=== PATIENT | female | born 1955 | race Caucasian/White ===

== ENCOUNTER 2017-01-17 21:43 | Emergency (ER) | payer OTHER ==
[2017-01-17] MEDS ORDERED: Ketorolac 30 MG/ML SDV IM ONE (22:47)
--- NOTE | 2017-01-17 23:01 | EDM.PDOC ---
ED HPI GENERAL MEDICAL PROBLEM - General Chief Complaint: Back Pain or Injury Stated Complaint: BACK INJURY Time Seen by Provider: 01/17/17 22:39 - History of Present Illness INITIAL COMMENTS - FREE TEXT/NARRATIVE: 61 years old female patient presented tonight with chief complaint of worsening pain of her lower back. Patient fell down 2 steps 5 days ago and had some low back pain since then. Was gradually improving until tonight when she sat up for a long time playing bingo and since then her back hurts more. No radiation. No focal weakness or numbness anywhere. No loss of control of urine and stool. Denies any urinary symptom. Denies any fever. She did not hit her head. No loss of consciousness. No pain anywhere else. She took ibuprofen earlier today which seems to be helping according to her. lower back pain Pain Score (Numeric/FACES): 8 - Related Data Allergies Allergy/AdvReac Type Severity Reaction Status Date / Time No Known Allergies Allergy Verified 01/17/17 22:26 Home Meds: Home Meds Aspirin [Vince Chewable] 81 mg PO DAILY 01/17/17 [History] Cyclobenzaprine [Flexeril] 10 mg PO BID 01/17/17 [History] Ibuprofen [Ibuprofen] 600 mg PO Q8H PRN 01/17/17 [History] Lisinopril [Lisinopril] 10 mg PO DAILY 01/17/17 [History] SitaGLIPtin [Januvia] 100 mg PO DAILY 01/17/17 [History] atorvaSTATin [Lipitor] 40 mg PO BEDTIME 01/17/17 [History] metFORMIN [Glucophage] 1,000 mg PO BIDMEALS 01/17/17 [History] Past Medical History HEENT History: Reports: Impaired Vision Cardiovascular History: 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 ED EXAM,LOWER BACK PAIN/INJURY - Physical Exam Exam: See Below Exam Limited By: No Limitations General Appearance: Alert, WD/WN, No Apparent Distress Head: Atraumatic, Normocephalic Neck: Normal Inspection, Supple, Non-Tender, Full Range of Motion Respiratory/Chest: No Respiratory Distress, Lungs Clear, Normal Breath Sounds, No Accessory Muscle Use, Chest Non-Tender Cardiovascular: Normal Peripheral Pulses, Regular Rate, Rhythm, No Edema, No Gallop, No JVD, No Murmur, No Rub GI/Abdominal: Normal Bowel Sounds, Soft, Non-Tender, No Organomegaly, No Distention, No Abnormal Bruit, No Mass Back Exam: Normal Inspection, Muscle Spasm, Paraspinal Tenderness. No: CVA Tenderness (R), Vertebral Tenderness Neurological: Alert, Normal Mood/Affect, Normal Dorsiflexion, CN II-XII Intact, Normal Plantar Flexion, Normal Gait, Normal Reflexes, No Motor/Sensory Deficits , Oriented x 3 Psychiatric: Normal Affect, Normal Mood Skin Exam: Warm, Dry, Intact, Normal Color, No Rash Course - Vital Signs Last Recorded V/S: Last Vital Signs Temp 36.7 C 01/17/17 22:24 Pulse 53 L 01/17/17 22:24 Resp 16 01/17/17 22:24 BP 136/85 01/17/17 22:24 Pulse Ox 99 01/17/17 22:24 - Orders/Labs/Meds Orders: Active Orders 24 hr Category Date Time Status Lumbar Spine 2 or 3V [CR] Stat Exams 01/17/17 22:54 Taken Meds: Medications Discontinued Medications Generic Name Dose Route Start Last Admin Trade Name Freq PRN Reason Stop Dose Admin Ketorolac Tromethamine 30 mg 01/17/17 22:47 01/17/17 23:04 Toradol IM 01/17/17 22:48 30 mg ONETIME ONE Administration - Re-Assessments/Exams Free Text/Narrative Re-Assessment/Exam: 01/17/17 23:20 Patient was seen and examined shortly after arrival. Stable. Given 30 mg IM Toradol. Symptom improved. Lumbar spine x-ray unremarkable. Official read by radiologist is pending.most likely muscle strain or sprain. Advised to use heat packs, ibuprofen, continue her Flexeril and close follow-up with her primary doctor. MRI of the lower back if not improving. Come back if symptom worsen. Patient agrees with the plan. Stable for discharge Departure - Departure Time of Disposition: 23:47 Disposition: Home, Self-Care 01 Condition: Good Clinical Impression: Low back pain - Discharge Information Instructions: Muscle Strain, [id number], Back Pain, Adult, [id number], Back Injury Prevention, [id number], Pain Medicine Instructions, [id number] Referrals: PCP,None [Primary Care Provider] - Forms: ED Department Discharge Additional Instructions: Advised to use heat packs, ibuprofen, continue her Flexeril and close follow-up with her primary doctor. MRI of the lower back if not improving. Come back if symptom worsen - My Orders Last 24 Hours: My Active Orders 01/17/17 22:54 Lumbar Spine 2 or 3V [CR] Stat - Assessment/Plan Last 24 Hours: My Active Orders 01/17/17 22:54 Lumbar Spine 2 or 3V [CR] Stat Plan: Official read by radiologist is pending.most likely muscle strain or sprain. Advised to use heat packs, ibuprofen, continue her Flexeril and close follow-up with her primary doctor. MRI of the lower back if not improving. Come back if symptom worsen
--- NOTE | 2017-01-18 09:05 | CR ---
Lumbar Spine 2 or 3V HISTORY: Fall, injury. COMPARISON: None FINDINGS: 5 lumbar type vertebral bodies are present. There is no fracture or subluxation. Minimal de generative change with tiny marginal osteophyte formation from the vertebral bodies. The vertebral johanny dy heights and disc spaces are well preserved. Impression: Very minimal degenerative change.
== END 2017-01-17 23:59 | disposition home or self-care (01) ==
LOC: JP.ED 21:43
DX: M54.5 Low back pain (principal); I10 Essential (primary) hypertension; E78.00 Pure hypercholesterolemia, unspecified; E11.9 Type 2 diabetes mellitus without complications; Z79.84 Long term (current) use of oral hypoglycemic drugs; Z79.82 Long term (current) use of aspirin; Z79.899 Other long term (current) drug therapy
CPT/HCPCS: 72100; 96372; 99284; J1885

== ENCOUNTER 2017-01-23 09:34 | Emergency (ER) | payer OTHER ==
--- NOTE | 2017-01-23 11:08 | EDM.PDOC ---
ED HPI GENERAL MEDICAL PROBLEM - General Chief Complaint: Gastrointestinal Problem Stated Complaint: DIARRHEA Time Seen by Provider: 01/23/17 10:45 Source of Information: Reports: Patient History Limitations: Reports: No Limitations - History of Present Illness INITIAL COMMENTS - FREE TEXT/NARRATIVE: 62-year-old female was had diarrhea for the past 4 days. She seemed better yesterday, but in the evening when she went to work or diarrhea returned and she had to leave work. Today she is already had diarrhea without eating or drinking anything, she is afraid if she takes anything orally until get worse. She has no nausea or vomiting, no fevers, no blood in the stool and no abdominal pain. She was at a birthday constitution party a week ago but does not know if she was exposed to any illness. Onset: Unknown/Unsure Duration: Day(s): (4 days) Severity: Moderate Worsens with: Reports: Eating Associated Symptoms: Reports: Chest Pain (Patient has been having some intermittent chest pain and epigastric pain after eating for the past month, not related to activity). Denies: Confusion, Fever/Chills Abdomen Pain Score (Numeric/FACES): 8 - Related Data Allergies Allergy/AdvReac Type Severity Reaction Status Date / Time No Known Allergies Allergy Verified 01/23/17 10:31 Home Meds: Home Meds Aspirin [Vince Chewable] 81 mg PO DAILY 01/17/17 [History] Cyclobenzaprine [Flexeril] 10 mg PO BID 01/17/17 [History] Ibuprofen [Ibuprofen] 600 mg PO Q8H PRN 01/17/17 [History] Lisinopril [Lisinopril] 10 mg PO DAILY 01/17/17 [History] SitaGLIPtin [Januvia] 100 mg PO DAILY 01/17/17 [History] atorvaSTATin [Lipitor] 40 mg PO BEDTIME 01/17/17 [History] metFORMIN [Glucophage] 1,000 mg PO BIDMEALS 01/17/17 [History] Past Medical History HEENT History: Reports: Impaired Vision Cardiovascular History: Reports: High Cholesterol, Hypertension Genitourinary History: Reports: 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 Denies: Fever, Chills HEENT: Reports: No Symptoms Respiratory: Denies: Shortness of Breath, Cough Cardiovascular: Reports: Chest Pain (Epigastric and substernal pain after eating intermittently for the past month) GI/Abdominal: Reports: Abdominal Pain (As described above), Diarrhea : Reports: No Symptoms Skin: Reports: No Symptoms Neurological: Reports: No Symptoms. Denies: Headache Psychiatric: Reports: No Symptoms ED EXAM, GI/ABD - Physical Exam Exam: See Below Exam Limited By: No Limitations General Appearance: Alert, No Apparent Distress Eyes: Bilateral: Normal Appearance (Normal hydration, no jaundice) Respiratory/Chest: No Respiratory Distress, Lungs Clear Cardiovascular: Regular Rate, Rhythm GI/Abdominal Exam: Normal Bowel Sounds, Soft, Non-Tender Extremities: Normal Inspection. No: Pedal Edema Neurological: Alert, Oriented Psychiatric: Normal Affect, Normal Mood Skin Exam: Warm, Dry Course - Vital Signs Last Recorded V/S: Last Vital Signs Temp 97.5 F 01/23/17 10:30 Pulse 94 01/23/17 10:30 Resp 14 01/23/17 10:30 BP 154/87 H 01/23/17 10:30 Pulse Ox 99 01/23/17 10:30 - Orders/Labs/Meds Orders: Active Orders 24 hr Category Date Time Status CULTURE STOOL + SHIGATOX [RM] Stat Lab 01/23/17 11:18 Received Labs: Laboratory Tests 01/23/17 01/23/17 Range/Units 11:18 11:18 WBC 25.1 H (4.5-11.0) K/uL RBC 4.21 (3.30-5.50) M/uL Hgb 12.4 (12.0-15.0) g/dL Hct 36.7 (36.0-48.0) % MCV 87 (80-98) fL MCH 30 (27-31) pg MCHC 34 (32-36) % Plt Count 348 (150-400) K/uL Neut % (Auto) 42 (36-66) % Lymph % (Auto) 13 L (24-44) % [place] % (Auto) 6 (2-6) % Eos % (Auto) 39 H (2-4) % Baso % (Auto) 0 (0-1) % Sodium 140 (140-148) mmol/L Potassium 3.8 (3.6-5.2) mmol/L Chloride 109 H (100-108) mmol/L Carbon Dioxide 22 (21-32) mmol/L Anion Gap 12.8 (5.0-14.0) mmol/L BUN 17 (7-18) mg/dL Creatinine 0.7 (0.6-1.0) mg/dL Est Cr Clr Drug Dosing 65.06 mL/min Estimated GFR (MDRD) > 60 (>60) Glucose 160 H (74-106) mg/dL Calcium 8.3 L (8.5-10.1) mg/dL - Re-Assessments/Exams Free Text/Narrative Re-Assessment/Exam: 01/23/17 11:07 CBC and BMP were obtained, and the patient was instructed to provide a stool sample. She was allowed to eat or drink something to make it more possible to produce the sample. 01/23/17 12:23 01/23/17 12:54 White count was surprisingly elevated at 25,000, there are no previous levels to compare to. The rest of her labs were reassuring. She had 4 or 5 episodes of diarrhea while in the emergency room over the course of 3 hours, a sample was taken and showed very few WBCs and it was C. difficile negative. Cultures were initiated. I asked the patient to try to resume her regular diet and push fluids over the next 48 hours and return if not improving satisfactorily. She agreed with the plan. Departure - Departure Time of Disposition: 13:01 Disposition: Home, Self-Care 01 Condition: Good Clinical Impression: Diarrhea - Discharge Information Instructions: Diarrhea, Adult, [id number] Referrals: Stevie Harper MD [Primary Care Provider] - Forms: ED Department Discharge Care Plan Goals: Advance diet as tolerated and try to resume regular activity. If not improving satisfactorily in 2-3 days return. Antidiarrheal medication such as Imodium may help over the next several days. - My Orders Last 24 Hours: My Active Orders 01/23/17 11:18 CULTURE STOOL + SHIGATOX [RM] Stat - Assessment/Plan Last 24 Hours: My Active Orders 01/23/17 11:18 CULTURE STOOL + SHIGATOX [RM] Stat
== END 2017-01-23 13:01 | disposition home or self-care (01) ==
LOC: JP.ED 09:34
DX: R19.7 Diarrhea, unspecified (principal); E11.9 Type 2 diabetes mellitus without complications; I10 Essential (primary) hypertension; E78.00 Pure hypercholesterolemia, unspecified; Z79.82 Long term (current) use of aspirin; Z79.899 Other long term (current) drug therapy
CPT/HCPCS: 36415; 80048; 85025; 87046; 87493; 87899; 89055; 99284

== ENCOUNTER 2017-01-24 12:59 | Inpatient (IN) | payer OTHER ==
--- NOTE | 2017-01-24 14:11 | EDM.PDOC ---
ED HPI GENERAL MEDICAL PROBLEM - General Chief Complaint: Gastrointestinal Problem Stated Complaint: MEDICAL VIA [facility] Time Seen by Provider: 01/24/17 14:07 Source of Information: Reports: Patient, EMS Notes Reviewed History Limitations: Reports: No Limitations - History of Present Illness INITIAL COMMENTS - FREE TEXT/NARRATIVE: Pt was seen yesterday and she had a clost didd done which was neg. Sh had about 30 stools this am. She felt lite headed. Sh has a wbc of 25,000. Onset: Gradual, Other ( pt has had a week of diarrhea. ) Duration: Day(s): Location: Reports: Abdomen Associated Symptoms: Reports: Other (Pt gets such severe cramping that she can bearly stand up.) Lower Abdominal Pain Score (Numeric/FACES): 10 - Related Data Allergies Allergy/AdvReac Type Severity Reaction Status Date / Time No Known Allergies Allergy Verified 01/23/17 10:31 Home Meds: Home Meds Aspirin [Vince Chewable] 81 mg PO DAILY 01/17/17 [History] Cyclobenzaprine [Flexeril] 10 mg PO BID 01/17/17 [History] Ibuprofen [Ibuprofen] 600 mg PO Q8H PRN 01/17/17 [History] Lisinopril [Lisinopril] 10 mg PO DAILY 01/17/17 [History] SitaGLIPtin [Januvia] 100 mg PO DAILY 01/17/17 [History] atorvaSTATin [Lipitor] 40 mg PO BEDTIME 01/17/17 [History] metFORMIN [Glucophage] 1,000 mg PO BIDMEALS 01/17/17 [History] Past Medical History HEENT History: Reports: Impaired Vision Cardiovascular History: Reports: High Cholesterol, Hypertension Genitourinary History: Reports: 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: Endocrine/Metabolic History: Reports: Diabetes, Type II Social & Family History - Tobacco Use Smoking Status *Q: Never Smoker Years of Tobacco use: 10 - Caffeine Use Caffeine Use: Reports: None - Alcohol Use Days Per Week of Alcohol Use: 2 Number of Drinks Per Day: 4 Total Drinks Per Week: 8 - Recreational Drug Use Recreational Drug Use: No ED ROS GENERAL - Review of Systems Review Of Systems: See Below Constitutional: Reports: No Symptoms HEENT: Reports: No Symptoms Respiratory: Reports: No Symptoms Cardiovascular: Reports: No Symptoms Endocrine: Reports: No Symptoms GI/Abdominal: Reports: Abdominal Pain, Other ( cramping) : Reports: No Symptoms Musculoskeletal: Reports: No Symptoms Skin: Reports: No Symptoms ED EXAM, GI/ABD - Physical Exam Exam: See Below Text/Narrative:: Pt returns today stating that she had an episode this am when she had about 30 stools. She felt liteheaded. . He had very severe cramping in her abdoman to the point she almost passed out. She has been dealing with the diarrhea for about 1 week. Exam Limited By: No Limitations General Appearance: Alert, Anxious, Moderate Distress Eyes: Bilateral: Normal Appearance, EOMI Ears: Normal TMs Nose: Normal Inspection Throat/Mouth: Normal Inspection Head: Atraumatic Neck: Normal Inspection Respiratory/Chest: No Respiratory Distress Cardiovascular: Regular Rate, Rhythm, Tachycardia GI/Abdominal Exam: Soft, Other ( abdoman is not guarded. She has diffuse tenderness. Will get a stool for giardia. ) (Female) Exam: Deferred Rectal (Female) Exam: Deferred Back Exam: Normal Inspection Extremities: Normal Inspection Neurological: Alert, Oriented, Normal Cognition Psychiatric: Normal Affect Course - Vital Signs Last Recorded V/S: Last Vital Signs Temp 36.4 C 01/24/17 13:06 Pulse 101 H 01/24/17 14:56 Resp 18 01/24/17 13:06 BP 155/73 H 01/24/17 14:56 Pulse Ox 96 01/24/17 14:56 - Orders/Labs/Meds Orders: Active Orders 24 hr Category Date Time Status Abdomen Pelvis w Cont [CT] Stat Exams 01/24/17 14:05 Taken CLOSTRIDIUM DIFFICILE BY PCR [RM] Stat Lab 01/24/17 14:57 Received OVA AND PARASITES [MREF] Stat Lab 01/24/17 14:57 Received UA W/MICROSCOPIC [URIN] Urgent Lab 01/24/17 13:55 Uncollected Sodium Chloride 0.9% [Normal Saline] 1,000 ml Med 01/24/17 14:15 Active IV ASDIRECTED Sodium Chloride 0.9% [Saline Flush] Med 01/24/17 14:29 Active 10 ml FLUSH ONETIME PRN Medication Orders Sodium Chloride (Normal Saline) 1,000 mls @ 999 mls/hr IV ASDIRECTED OZ Last Admin: 01/24/17 14:56 Dose: 999 mls/hr Sodium Chloride (Saline Flush) 10 ml FLUSH ONETIME PRN PRN Reason: PER RADIOLOGY PROTOCOL Last Admin: 01/24/17 14:49 Dose: 10 ml Labs: Laboratory Tests 01/24/17 01/24/17 01/24/17 Range/Units 14:07 14:07 14:07 WBC 27.4 H (4.5-11.0) K/uL RBC 4.55 (3.30-5.50) M/uL Hgb 13.5 (12.0-15.0) g/dL Hct 38.7 (36.0-48.0) % MCV 85 (80-98) fL MCH 30 (27-31) pg MCHC 35 (32-36) % Plt Count 390 (150-400) K/uL Neut % (Auto) 51 (36-66) % Lymph % (Auto) 10 L (24-44) % [place] % (Auto) 6 (2-6) % Eos % (Auto) 33 H (2-4) % Baso % (Auto) 0 (0-1) % Sodium 139 L (140-148) mmol/L Potassium 3.6 (3.6-5.2) mmol/L Chloride 108 (100-108) mmol/L Carbon Dioxide 19 L (21-32) mmol/L Anion Gap 15.6 H (5.0-14.0) mmol/L BUN 19 H (7-18) mg/dL Creatinine 0.6 (0.6-1.0) mg/dL Est Cr Clr Drug Dosing 75.90 mL/min Estimated GFR (MDRD) > 60 (>60) Glucose 193 H (74-106) mg/dL Calcium 8.3 L (8.5-10.1) mg/dL Total Bilirubin 0.2 (0.2-1.0) mg/dL AST 17 (15-37) U/L ALT 23 (12-78) U/L Alkaline Phosphatase 142 H (46-116) U/L C-Reactive Protein 0.89 H (0.0-0.3) mg/dL Total Protein 6.5 (6.4-8.2) g/dL Albumin 2.8 L (3.4-5.0) g/dL Globulin 3.7 H (2.3-3.5) g/dL Albumin/Globulin Ratio 0.8 L (1.2-2.2) Meds: Medications Generic Name Dose Route Start Last Admin Trade Name Freq PRN Reason Stop Dose Admin Sodium Chloride 1,000 mls @ 999 mls/hr 01/24/17 14:15 01/24/17 14:56 Normal Saline IV 999 mls/hr ASDIRECTED OZ Administration Sodium Chloride 10 ml 01/24/17 14:29 01/24/17 14:49 Saline Flush FLUSH 10 ml ONETIME PRN Administration PER RADIOLOGY PROTOCOL Discontinued Medications Generic Name Dose Route Start Last Admin Trade Name Freq PRN Reason Stop Dose Admin Sodium Chloride 70 mls @ 3 mls/sec 01/24/17 14:29 01/24/17 14:49 Normal Saline IV 01/24/17 14:30 3 mls/sec ONETIME ONE Administration Iopamidol 100 ml 01/24/17 14:29 01/24/17 14:49 Isovue-300 (61%) IV 100 ml . DIRECTED PRN Administration RADIOLOGY EXAM - Re-Assessments/Exams Free Text/Narrative Re-Assessment/Exam: 01/24/17 15:58 pt was given a liter of fluids. Her cat scan showed some thickenin in the cecum and one area lite up. Her wbc is 27.000 with a 33 % eosinophilia. She will be admitted. Departure - Departure Time of Disposition: 16:00 Disposition: Admitted As Inpatient 65 Condition: Fair Clinical Impression: Diarrhea, Eosinophilia, Dehydration - Discharge Information Referrals: PCP,None [Primary Care Provider] - Forms: ED Department Discharge Care Plan Goals: admit to Dr ba - My Orders Last 24 Hours: My Active Orders 01/24/17 13:55 UA W/MICROSCOPIC [URIN] Urgent 01/24/17 14:05 Abdomen Pelvis w Cont [CT] Stat 01/24/17 14:15 Sodium Chloride 0.9% [Normal Saline] 1,000 ml IV ASDIRECTED 01/24/17 14:29 Sodium Chloride 0.9% [Saline Flush] 10 ml FLUSH ONETIME PRN 01/24/17 14:57 CLOSTRIDIUM DIFFICILE BY PCR [RM] Stat OVA AND PARASITES [MREF] Stat - Assessment/Plan Last 24 Hours: My Active Orders 01/24/17 13:55 UA W/MICROSCOPIC [URIN] Urgent 01/24/17 14:05 Abdomen Pelvis w Cont [CT] Stat 01/24/17 14:15 Sodium Chloride 0.9% [Normal Saline] 1,000 ml IV ASDIRECTED 01/24/17 14:29 Sodium Chloride 0.9% [Saline Flush] 10 ml FLUSH ONETIME PRN 01/24/17 14:57 CLOSTRIDIUM DIFFICILE BY PCR [RM] Stat OVA AND PARASITES [MREF] Stat
[2017-01-24] MEDS ORDERED: Sodium Chloride 0.9% 1,000 ML IV SCH (14:15)
[2017-01-24] MEDS ORDERED: Sodium Chloride 0.9% 10 ML Syringe FLUSH PRN ×2 (14:29→16:59)
[2017-01-24] MEDS ORDERED: Iopamidol 612 MG/ML 100 ML Bottle IV PRN (14:29)
--- NOTE | 2017-01-24 16:53 | PCM.HP ---
H&P History of Present Illness - General Date of Service: 01/24/17 Admit Problem/Dx: Admission Diagnosis/Problem Admission Diagnosis/Problem Enteritis Source of Information: Patient, Provider, RN Notes Reviewed History Limitations: Reports: No Limitations - History of Present Illness Initial Comments - Free Text/Narative: Ms. Dan is a 62-year-old woman who is admitted through the emergency department with abdominal pain and diarrhea secondary to enteritis. She's not felt well over the past 6 days, onset of symptoms was relatively abrupt. She denies any sick contacts or recent antibiotic use. Diarrhea has become worse over the past few days to the point where she's been very weak to the point that she is been unable to take care of herself. Laboratory studies in the emergency department shown elevated white blood cell count, other labs include an elevated CRP. CT scan of the abdomen shows fluid in the small intestine with inflammation in the cecum. Lower Abdominal Pain Score (Numeric/FACES): 10 - Related Data Allergies/Adverse Reactions: Allergies Allergy/AdvReac Type Severity Reaction Status Date / Time No Known Allergies Allergy Verified 01/23/17 10:31 Home Medications: Home Meds Aspirin [Vince Chewable] 81 mg PO DAILY 01/17/17 [History] Cyclobenzaprine [Flexeril] 10 mg PO BID 01/17/17 [History] Ibuprofen [Ibuprofen] 600 mg PO Q8H PRN 01/17/17 [History] Lisinopril [Lisinopril] 10 mg PO DAILY 01/17/17 [History] SitaGLIPtin [Januvia] 100 mg PO DAILY 01/17/17 [History] atorvaSTATin [Lipitor] 40 mg PO BEDTIME 01/17/17 [History] metFORMIN [Glucophage] 1,000 mg PO BIDMEALS 01/17/17 [History] Past Medical History HEENT History: Reports: Impaired Vision Cardiovascular History: Reports: High Cholesterol, Hypertension Genitourinary History: Reports: Pyelonephritis [employer]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: Endocrine/Metabolic History: Reports: Diabetes, Type II Social & Family History - Tobacco Use Smoking Status *Q: Never Smoker Years of Tobacco use: 10 - Caffeine Use Caffeine Use: Reports: None - Alcohol Use Days Per Week of Alcohol Use: 2 Number of Drinks Per Day: 4 Total Drinks Per Week: 8 - Recreational Drug Use Recreational Drug Use: No H&P Review of Systems - Review of Systems: Review Of Systems: See Below General: Reports: Fever, Chills, Weakness, Diaphoresis, Decreased Appetite HEENT: Reports: No Symptoms Pulmonary: Reports: No Symptoms Cardiovascular: Reports: No Symptoms Gastrointestinal: Reports: Abdominal Pain, Diarrhea, Decreased Appetite. Denies : Black Stool, Bloody Stool, Constipation, Difficulty Swallowing, Distension, Nausea, Vomiting Genitourinary: Reports: No Symptoms Musculoskeletal: Reports: No Symptoms Skin: Reports: No Symptoms Psychiatric: Reports: No Symptoms Neurological: Reports: No Symptoms Hematologic/Lymphatic: Reports: No Symptoms Immunologic: Reports: No Symptoms Exam - Exam Exam: See Below - Vital Signs Vital Signs: Last Vital Signs Temp 97.5 F 01/24/17 13:06 Pulse 101 H 01/24/17 14:56 Resp 18 01/24/17 13:06 BP 155/73 H 01/24/17 14:56 Pulse Ox 96 01/24/17 14:56 Weight: 140 lb - Exam Quality Assessment: DVT Prophylaxis General: Alert, Oriented, Cooperative, Moderate Distress HEENT: Conjunctiva Clear, Hearing Intact, Normal Nasal Septum, Posterior Pharynx Clear, Pupils Equal. No: Mucosa Moist & [place]ck: Supple, Trachea Midline, +2 Carotid Pulse wo Bruit Lungs: Clear to Auscultation, Normal Respiratory Effort Cardiovascular: Regular Rate, Regular Rhythm, Normal S1, Normal S2. No: Systolic Murmur, Diastolic Murmur GI/Abdominal Exam: Normal Bowel Sounds, Soft, Non-Tender, No Distention Back Exam: Normal Inspection, Full Range of Motion Extremities: Non-Tender, No Pedal Edema Skin: Warm, Dry, Intact Neurological: Cranial Nerves Intact, Strength Equal Bilateral, Normal Speech, Normal Tone, Sensation Intact. No: Focal Deficit Neuro Extensive - Mental Status: Alert, Oriented x3, Normal Mood/Affect, Normal Cognition, Memory Intact - Patient Data Lab Results Last 24 hrs: Laboratory Results - last 24 hr 01/24/17 01/24/17 01/24/17 Range/Units 14:07 14:07 14:07 WBC 27.4 H (4.5-11.0) K/uL RBC 4.55 (3.30-5.50) M/uL Hgb 13.5 (12.0-15.0) g/dL Hct 38.7 (36.0-48.0) % MCV 85 (80-98) fL MCH 30 (27-31) pg MCHC 35 (32-36) % Plt Count 390 (150-400) K/uL Neut % (Auto) 51 (36-66) % Lymph % (Auto) 10 L (24-44) % [place] % (Auto) 6 (2-6) % Eos % (Auto) 33 H (2-4) % Baso % (Auto) 0 (0-1) % Sodium 139 L (140-148) mmol/L Potassium 3.6 (3.6-5.2) mmol/L Chloride 108 (100-108) mmol/L Carbon Dioxide 19 L (21-32) mmol/L Anion Gap 15.6 H (5.0-14.0) mmol/L BUN 19 H (7-18) mg/dL Creatinine 0.6 (0.6-1.0) mg/dL Est Cr Clr Drug Dosing 75.90 mL/min Estimated GFR (MDRD) > 60 (>60) Glucose 193 H (74-106) mg/dL Calcium 8.3 L (8.5-10.1) mg/dL Total Bilirubin 0.2 (0.2-1.0) mg/dL AST 17 (15-37) U/L ALT 23 (12-78) U/L Alkaline Phosphatase 142 H (46-116) U/L C-Reactive Protein 0.89 H (0.0-0.3) mg/dL Total Protein 6.5 (6.4-8.2) g/dL Albumin 2.8 L (3.4-5.0) g/dL Globulin 3.7 H (2.3-3.5) g/dL Albumin/Globulin Ratio 0.8 L (1.2-2.2) Result Diagrams: 01/24/17 14:07 01/24/17 14:07 *Q Meaningful Use (ADM) - VTE *Q VTE Criteria *Q: - VTE Risk Assess *Q Each Risk Factor Represents 1 Point: Obesity ( BMI > 25 kg/m2) Total Score 1 Point Risk Factors: 1 Each Risk Factor Represents 2 Points: Age 60 - 74 Years Total Score 2 Point Risk Factors: 2 Each Risk Factor Represents 3 Points: None Total Score 3 Point Risk Factors: 0 Each Risk Factor Represents 5 Points: None Total Score 5 Point Risk Factors: 0 Venous Thromboembolism Risk Factor Score *Q: 3 - Stroke *Q Stroke Criteria *Q: - AMI *Q AMI Criteria *Q: Problem List Initiated/Reviewed/Updated: Yes Orders Last 24hrs: Active Orders 24 hr Category Date Time Status Patient Status Manage Transfer [TRANSFER] Routine ADT 01/24/17 16:39 Ordered Abdomen Pelvis w Cont [CT] Stat Exams 01/24/17 14:05 Taken CLOSTRIDIUM DIFFICILE BY PCR [RM] Stat Lab 01/24/17 14:57 Received OVA AND PARASITES [MREF] Stat Lab 01/24/17 14:57 Received UA W/MICROSCOPIC [URIN] Urgent Lab 01/24/17 13:55 Uncollected Sodium Chloride 0.9% [Normal Saline] 1,000 ml Med 01/24/17 14:15 Active IV ASDIRECTED Sodium Chloride 0.9% [Saline Flush] Med 01/24/17 14:29 Active 10 ml FLUSH ONETIME PRN Resuscitation Status Routine Resus Stat 01/24/17 16:41 Ordered Medication Orders Sodium Chloride (Normal Saline) 1,000 mls @ 999 mls/hr IV ASDIRECTED OZ Last Admin: 01/24/17 14:56 Dose: 999 mls/hr Sodium Chloride (Saline Flush) 10 ml FLUSH ONETIME PRN PRN Reason: PER RADIOLOGY PROTOCOL Last Admin: 01/24/17 14:49 Dose: 10 ml Assessment/Plan Comment:: ASSESSMENT AND PLAN COLITIS/ENTERITIS-associated with profuse diarrhea, cramping abdominal pain, and dehydration. Oral intake is been poor over the past few days and she has become progressively more weak. Likely infectious in nature given elevated white blood cell count and abrupt onset. -Nothing by mouth -IV fluids for hydration -Pain medication and antiemetic therapy as needed -Stool studies pending: O&P, C. difficile, culture -IV ciprofloxacin and Flagyl -Consider colonoscopy for surgical evaluation especially in light of abnormalities identified in the cecum on CT scan TYPE 2 DIABETES MELLITUS -4 times a day glucometers -Hold metformin and Amaryl -Low-dose sliding scale NovoLog until she resumes diet MAINTENANCE ISSUES -DVT prophylaxis; Lovenox 40 mg subcutaneous daily -GI prophylaxis; not indicated -Koehler catheter; not indicated -Nutrition; nothing by mouth -Nicotine dependence; not required CODE STATUS-FULL CODE ADMISSION STATUS-patient will be admitted to inpatient status, expect at least a 2 night hospital stay for evaluation and management of problems as outlined above. At the time of this admission I do not reasonably expected evaluation and management of this problem will require more than a 96 hour hospital stay. DISPOSITION-anticipate discharge to home after the hospital stay. PRIMARY CARE PROVIDER-
[2017-01-24] MEDS ORDERED: oxyCODONE 5 MG Tab PO PRN (16:59)
[2017-01-24] MEDS ORDERED: Acetaminophen 325 MG Tab PO PRN (16:59)
[2017-01-24] MEDS ORDERED: 50% Dextrose in Water 50 ML Syringe IV PRN (16:59)
[2017-01-24] MEDS ORDERED: HYDROmorphone 0.5 MG/0.5 ML Syringe IVPUSH PRN (16:59)
[2017-01-24] MEDS ORDERED: Ondansetron 4 MG/2 ML SDV IV PRN (16:59)
[2017-01-24] MEDS ORDERED: Glucose Gel 15 GM in 37.5 GM Tube PO PRN (16:59)
[2017-01-24] MEDS: Lactated Ringers 1,000 ML IV SCH (17:28)
[2017-01-24] MEDS: metroNIDAZOLE/Normal Saline 500 MG in Premix Bag 1 BAG IV SCH (17:29)
[2017-01-24] MEDS ORDERED: FLU Vacc QS 2017-18 (36mos UP)/PF 60 MCG/0.5 ML Syringe IM ONE (17:45)
[2017-01-24] MEDS: Insulin Aspart 100 Units/ML 3 ML Pen SUBCUT SCH ×2 (18:02→21:39)
[2017-01-24] MEDS: Ciprofloxacin in D5W 400 MG in Premix Bag 1 BAG IV SCH ×2 (18:31)
[2017-01-24] MEDS: atorvaSTATin 20 MG Tab PO SCH (21:40)
[2017-01-25] MEDS: metroNIDAZOLE/Normal Saline 500 MG in Premix Bag 1 BAG IV SCH ×3 (00:07→17:06)
[2017-01-25] MEDS: Ketorolac 30 MG/ML SDV IVPUSH PRN (00:07)
[2017-01-25] MEDS: Lactated Ringers 1,000 ML IV SCH ×2 (04:47→15:47)
[2017-01-25] MEDS: Ciprofloxacin in D5W 400 MG in Premix Bag 1 BAG IV SCH ×4 (05:25→18:29)
[2017-01-25] MEDS: Insulin Aspart 100 Units/ML 3 ML Pen SUBCUT SCH ×4 (07:43→21:09)
[2017-01-25] MEDS: Aspirin 81 MG Tab.Chew PO SCH (09:09)
[2017-01-25] MEDS: Magnesium Oxide 400 MG Tab PO SCH ×2 (09:09→21:11)
[2017-01-25] MEDS: Lisinopril 10 MG Tab PO SCH (09:09)
[2017-01-25] MEDS: Enoxaparin 40 MG/0.4 ML Syringe SUBCUT SCH (09:10)
[2017-01-25] MEDS: Magnesium Sulfate/Water 2 GM in Premix Bag 1 BAG IV SCH ×3 (10:30→21:09)
[2017-01-25] MEDS: Potassium Chloride 20 MEQ, Lidocaine 1% 2 ML in Sodium Chloride 0.9% 100 ML IV SCH ×2 (11:23→13:29)
--- NOTE | 2017-01-25 11:25 | PCM.PN ---
- General Info Date of Service: 01/25/17 Functional Status: Reports: Pain Controlled, Ambulating, Urinating - Review of Systems General: Reports: Weakness. Denies: Fever, Chills Pulmonary: Reports: No Symptoms Cardiovascular: Reports: No Symptoms Gastrointestinal: Reports: Abdominal Pain, Diarrhea. Denies: Difficulty Swallowing, Hematochezia, Melena, Nausea, Vomiting Systems Review Comment:: Ms. Dan has improved somewhat since admission, continued diarrhea but not as frequent as it had been prior to admission abdominal pain has improved. Vital signs have been stable and she has remained afebrile. - Patient Data Vitals - Most Recent: Last Vital Signs Temp 97.7 F 01/25/17 10:32 Pulse 86 01/25/17 10:32 Resp 14 01/25/17 10:32 BP 101/62 01/25/17 10:32 Pulse Ox 95 01/25/17 10:32 Weight - Most Recent: 140 lb I&O - Last 24 Hours: Intake & Output 01/24/17 01/25/17 01/25/17 22:59 06:59 14:59 Intake Total 600 1661 Output Total 700 Balance -100 1661 Lab Results Last 24 Hours: Laboratory Results - last 24 hr 01/25/17 01/25/17 01/25/17 Range/Units 05:36 05:36 08:34 WBC 24.3 H (4.5-11.0) K/uL RBC 3.75 (3.30-5.50) M/uL Hgb 11.1 L D (12.0-15.0) g/dL Hct 32.3 L (36.0-48.0) % MCV 86 (80-98) fL MCH 30 (27-31) pg MCHC 34 (32-36) % Plt Count 335 (150-400) K/uL Neut % (Auto) 39 (36-66) % Lymph % (Auto) 13 L (24-44) % [place] % (Auto) 5 (2-6) % Eos % (Auto) 43 H (2-4) % Baso % (Auto) 0 (0-1) % Sodium 142 (140-148) mmol/L Potassium 3.4 L (3.6-5.2) mmol/L Chloride 112 H (100-108) mmol/L Carbon Dioxide 21 (21-32) mmol/L Anion Gap 12.4 (5.0-14.0) mmol/L BUN 18 (7-18) mg/dL Creatinine 0.7 (0.6-1.0) mg/dL Est Cr Clr Drug Dosing 65.06 mL/min Estimated GFR (MDRD) > 60 (>60) Glucose 130 H (74-106) mg/dL Calcium 7.0 L D (8.5-10.1) mg/dL Magnesium 1.0 L (1.8-2.4) mg/dL Urine Color Yellow Urine Appearance Slightly cloudy Urine pH 5.0 (4.5-8.0) Ur Specific [place] 1.025 (1.008-1.030) Urine Protein Negative (NEGATIVE) mg/dL Urine Glucose (UA) 250 H (NEGATIVE) mg/dL Urine Ketones Negative (NEGATIVE) mg/dL Urine Occult Blood Negative (NEGATIVE) Urine Nitrite Negative (NEGATIVE) Urine Bilirubin Negative (NEGATIVE) Urine Urobilinogen Normal (NORMAL) mg/dL Ur Leukocyte Esterase Negative (NEGATIVE) Urine RBC 0-5 (0-5) Urine WBC 0-5 (0-5) Ur Epithelial Cells Few Amorphous Sediment Not seen Urine Bacteria Not seen Urine Mucus Many Med Orders - Current: Current Medications Acetaminophen (Tylenol) 650 mg PO Q4H PRN PRN Reason: Pain (Mild 1-3)/fever Last Admin: 01/24/17 21:40 Dose: 650 mg Aspirin (Aspirin) 81 mg PO DAILY [facility] Last Admin: 01/25/17 09:09 Dose: 81 mg Atorvastatin Calcium (Lipitor) 40 mg PO BEDTIME [facility] Last Admin: 01/24/17 21:40 Dose: 40 mg Dextrose (Glutose 15) 15 gm PO ONETIME PRN PRN Reason: Hypoglycemia Dextrose/Water (Dextrose 50% In Water) 50 ml IV ONETIME PRN PRN Reason: Hypoglycemia Enoxaparin Sodium (Lovenox) 40 mg SUBCUT DAILY [facility] Last Admin: 01/25/17 09:10 Dose: 40 mg Hydromorphone HCl (Dilaudid) 0.5 mg IVPUSH Q2H PRN PRN Reason: Pain Last Admin: 01/24/17 17:49 Dose: 0.5 mg Ciprofloxacin/Dextrose 400 mg/ (Premix) 200 mls @ 200 mls/hr IV Q12H [facility] Last Admin: 01/25/17 05:25 Dose: 200 mls/hr Lactated Ringer's (Ringers, Lactated) 1,000 mls @ 125 mls/hr IV ASDIRECTED [facility] Last Admin: 01/25/17 04:47 Dose: 125 mls/hr Metronidazole 500 mg/ Premix 100 mls @ 100 mls/hr IV Q8H [facility] Last Admin: 01/25/17 09:09 Dose: 100 mls/hr Magnesium Sulfate 2 gm/ Premix 50 mls @ 25 mls/hr IV Q6H [facility] Stop: 01/26/17 05:59 Last Admin: 01/25/17 10:30 Dose: 25 mls/hr Potassium Chloride 20 meq/Lidocaine HCl 2 ml/ Sodium Chloride 112 mls @ 56 mls/ hr IV Q2H [facility] Stop: 01/25/17 13:59 Influenza Virus Vaccine (Fluzone Quad [id number]) 60 mcg IM .ONCE ONE Stop: 01/25/17 16:01 Insulin Aspart (Novolog) 0 unit SUBCUT QIDACANDBED [facility] PRN Reason: Protocol Last Admin: 01/25/17 07:43 Dose: Not Given Ketorolac Tromethamine (Toradol) 30 mg IVPUSH Q6H PRN PRN Reason: Pain Stop: 01/29/17 21:54 Last Admin: 01/25/17 00:07 Dose: 30 mg Lisinopril (Prinivil) 10 mg PO DAILY [facility] Last Admin: 01/25/17 09:09 Dose: 10 mg Magnesium Oxide (Magnesium Oxide) 400 mg PO BID [facility] Last Admin: 01/25/17 09:09 Dose: 400 mg Ondansetron HCl (Zofran) 4 mg IV Q4H PRN PRN Reason: Nausea/Vomiting Last Admin: 01/24/17 19:38 Dose: 4 mg Oxycodone HCl (Oxycodone) 5 mg PO Q4H PRN PRN Reason: Pain (moderate 4-6) Sodium Chloride (Saline Flush) 10 ml FLUSH ASDIRECTED PRN PRN Reason: Keep Vein Open Discontinued Medications Sodium Chloride (Normal Saline) 1,000 mls @ 999 mls/hr IV ASDIRECTED [facility] Last Admin: 01/24/17 14:56 Dose: 999 mls/hr Sodium Chloride (Normal Saline) 70 mls @ 3 mls/sec IV ONETIME ONE Stop: 01/24/17 14:30 Last Admin: 01/24/17 14:49 Dose: 3 mls/sec Influenza Virus Vaccine (Pharmacy To Dose - Influenza Vaccine) 1 each IM ONETIME ONE Stop: 01/24/17 17:43 Influenza Virus Vaccine (Fluzone Quad [id number]) 60 mcg IM .ONCE ONE Stop: 01/24/17 17:46 Last Admin: 01/24/17 19:50 Dose: Not Given Iopamidol (Isovue-300 (61%)) 100 ml IV . DIRECTED PRN PRN Reason: RADIOLOGY EXAM Last Admin: 01/24/17 14:49 Dose: 100 ml Sodium Chloride (Saline Flush) 10 ml FLUSH ONETIME PRN PRN Reason: PER RADIOLOGY PROTOCOL Last Admin: 01/24/17 14:49 Dose: 10 ml - Exam Quality Assessment: DVT Prophylaxis General: Alert, Oriented, Mild Distress Lungs: Clear to Auscultation, Normal Respiratory Effort Cardiovascular: Regular Rate, Regular Rhythm, No Murmurs GI/Abdominal Exam: Normal Bowel Sounds, Soft, No Organomegaly, Tender. No: Distended, Guarding, Rigid, Rebound Extremities: Non-Tender, No Pedal Edema Skin: Warm, Dry, Intact - Problem List Review Problem List Initiated/Reviewed/Updated: Yes - My Orders Last 24 Hours: My Active Orders 01/24/17 16:41 Resuscitation Status Routine 01/24/17 16:59 Patient Status [ADT] Routine Ambulate [RC] QID Blood Glucose Check, Bedside [RC] QIDACANDBED Communication Order [RC] ASDIRECTED Diabetes Education [RC] Click to Edit Intake and Output [RC] QSHIFT Notify Provider Vital Signs [RC] ASDIRECTED Notify Provider [RC] PRN Oxygen Therapy [RC] PRN Peripheral IV Care [RC] Q12H Up ad [place] [RC] ASDIRECTED Up to Chair [RC] QID VTE/DVT Education [RC] Per Unit Routine Vital Signs [RC] Q4H Acetaminophen [Tylenol] 650 mg PO Q4H PRN Dextrose 50% in Water 50 ml IV ONETIME PRN Dextrose [Glutose 15] 15 gm PO ONETIME PRN HYDROmorphone [Dilaudid] 0.5 mg IVPUSH Q2H PRN Lactated Ringers [Ringers, Lactated] 1,000 ml IV ASDIRECTED Ondansetron [Zofran] 4 mg IV Q4H PRN Sodium Chloride 0.9% [Saline Flush] 10 ml FLUSH ASDIRECTED PRN oxyCODONE 5 mg PO Q4H PRN Peripheral IV Insertion Adult [OM.PC] Routine 01/24/17 17:00 Insulin Aspart [NovoLOG] See Protocol SUBCUT QIDACANDBED metroNIDAZOLE/Normal Saline [Flagyl 500 MG in NS 100 ML] 500 mg Premix Bag 1 bag IV Q8H 01/24/17 18:00 Ciprofloxacin in D5W [Cipro in D5W 400 MG/200 ML] 400 mg Premix Bag 1 bag IV Q12H 01/24/17 21:54 Ketorolac [Toradol] 30 mg IVPUSH Q6H PRN 01/25/17 09:00 Enoxaparin [Lovenox] 40 mg SUBCUT DAILY Magnesium Oxide 400 mg PO BID 01/25/17 10:00 Magnesium Sulfate/Water [Magnesium Sulfate 2 GM in Water 50 ML] 2 gm Premix Bag 1 bag IV Q6H Potassium Chloride 20 meq Lidocaine 1% [Xylocaine 1%] 2 ml Sodium Chloride 0.9 % [Normal Saline] 100 ml IV Q2H 01/25/17 11:30 GLUCOSE POC LAB TO COLLECT [POC] QIDACANDBED 01/25/17 16:00 FLU Vacc [id number] [id number] UP/PF [Fluzone Quad [id number]] 60 mcg IM .ONCE ONE 01/25/17 16:30 GLUCOSE POC LAB TO COLLECT [POC] QIDACANDBED 01/25/17 21:00 GLUCOSE POC LAB TO COLLECT [POC] QIDACANDBED 01/25/17 Lunch Clear Liquid Diet [DIET] 01/26/17 05:00 BASIC METABOLIC PANEL,BMP [CHEM] Timed CBC WITH AUTO DIFF [HEME] Timed MAGNESIUM [CHEM] Timed 01/26/17 07:30 GLUCOSE POC LAB TO COLLECT [POC] QIDACANDBED 01/26/17 11:30 GLUCOSE POC LAB TO COLLECT [POC] QIDACANDBED 01/26/17 16:30 GLUCOSE POC LAB TO COLLECT [POC] QIDACANDBED 01/26/17 21:00 GLUCOSE POC LAB TO COLLECT [POC] QIDACANDBED 01/26/17 Breakfast NPO After Midnight [Nothing per Oral After Midnight Diet] [DIET] 01/27/17 07:30 GLUCOSE POC LAB TO COLLECT [POC] QIDACANDBED 01/27/17 11:30 GLUCOSE POC LAB TO COLLECT [POC] QIDACANDBED 01/27/17 16:30 GLUCOSE POC LAB TO COLLECT [POC] QIDACANDBED 01/27/17 21:00 GLUCOSE POC LAB TO COLLECT [POC] QIDACANDBED 01/28/17 07:30 GLUCOSE POC LAB TO COLLECT [POC] QIDACANDBED 01/28/17 11:30 GLUCOSE POC LAB TO COLLECT [POC] QIDACANDBED 01/28/17 16:30 GLUCOSE POC LAB TO COLLECT [POC] QIDACANDBED 01/28/17 21:00 GLUCOSE POC LAB TO COLLECT [POC] QIDACANDBED 01/29/17 07:30 GLUCOSE POC LAB TO COLLECT [POC] QIDACANDBED 01/29/17 11:30 GLUCOSE POC LAB TO COLLECT [POC] QIDACANDBED 01/29/17 16:30 GLUCOSE POC LAB TO COLLECT [POC] QIDACANDBED 01/29/17 21:00 GLUCOSE POC LAB TO COLLECT [POC] QIDACANDBED 01/30/17 07:30 GLUCOSE POC LAB TO COLLECT [POC] QIDACANDBED 01/30/17 11:30 GLUCOSE POC LAB TO COLLECT [POC] QIDACANDBED 01/30/17 16:30 GLUCOSE POC LAB TO COLLECT [POC] QIDACANDBED 01/30/17 21:00 GLUCOSE POC LAB TO COLLECT [POC] QIDACANDBED 01/31/17 07:30 GLUCOSE POC LAB TO COLLECT [POC] QIDACANDBED 01/31/17 11:30 GLUCOSE POC LAB TO COLLECT [POC] QIDACANDBED 01/31/17 16:30 GLUCOSE POC LAB TO COLLECT [POC] QIDACANDBED 01/31/17 21:00 GLUCOSE POC LAB TO COLLECT [POC] QIDACANDBED 02/01/17 07:30 GLUCOSE POC LAB TO COLLECT [POC] QIDACANDBED 02/01/17 11:30 GLUCOSE POC LAB TO COLLECT [POC] QIDACANDBED 02/01/17 16:30 GLUCOSE POC LAB TO COLLECT [POC] QIDACANDBED 02/01/17 21:00 GLUCOSE POC LAB TO COLLECT [POC] QIDACANDBED 02/02/17 07:30 GLUCOSE POC LAB TO COLLECT [POC] QIDACANDBED 02/02/17 11:30 GLUCOSE POC LAB TO COLLECT [POC] QIDACANDBED 02/02/17 16:30 GLUCOSE POC LAB TO COLLECT [POC] QIDACANDBED 02/02/17 21:00 GLUCOSE POC LAB TO COLLECT [POC] QIDACANDBED 02/03/17 07:30 GLUCOSE POC LAB TO COLLECT [POC] QIDACANDBED 02/03/17 11:30 GLUCOSE POC LAB TO COLLECT [POC] QIDACANDBED 02/03/17 16:30 GLUCOSE POC LAB TO COLLECT [POC] QIDACANDBED 02/03/17 21:00 GLUCOSE POC LAB TO COLLECT [POC] QIDACANDBED 02/04/17 07:30 GLUCOSE POC LAB TO COLLECT [POC] QIDACANDBED 02/04/17 11:30 GLUCOSE POC LAB TO COLLECT [POC] QIDACANDBED 02/04/17 16:30 GLUCOSE POC LAB TO COLLECT [POC] QIDACANDBED - Plan Plan:: ASSESSMENT AND PLAN COLITIS/ENTERITIS-associated with profuse diarrhea, cramping abdominal pain, and dehydration. Oral intake is been poor over the past few days and she has become progressively more weak. Likely infectious in nature given elevated white blood cell count and abrupt onset. Improved since admission with less abdominal pain and diarrhea -Clear liquid diet -Nothing by mouth after midnight -IV fluids for hydration -Pain medication and antiemetic therapy as needed -Stool studies pending: O&P, C. difficile, culture -IV ciprofloxacin and Flagyl -Surgical consult for colonoscopy in a.m. TYPE 2 DIABETES MELLITUS -4 times a day glucometers -Hold metformin and Amaryl -Low-dose sliding scale NovoLog until she resumes diet MAINTENANCE ISSUES -DVT prophylaxis; Lovenox 40 mg subcutaneous daily -GI prophylaxis; not indicated -Koehler catheter; not indicated -Nutrition; nothing by mouth -Nicotine dependence; not required CODE STATUS-FULL CODE ADMISSION STATUS-patient will be admitted to inpatient status, expect at least a 2 night hospital stay for evaluation and management of problems as outlined above. At the time of this admission I do not reasonably expected evaluation and management of this problem will require more than a 96 hour hospital stay. DISPOSITION-anticipate discharge to home after the hospital stay. PRIMARY CARE PROVIDER-Dr. Harper
[2017-01-25] MEDS ORDERED: Bisacodyl 5 MG Tab PO ONE ×3 (13:17→18:00)
[2017-01-25] MEDS ORDERED: FLU Vacc QS 2017-18 (36mos UP)/PF 60 MCG/0.5 ML Syringe IM ONE (16:00)
[2017-01-25] MEDS ORDERED: Polyethylene Glycol 3350 Powder 238 GM Bot PO ONE (17:00)
[2017-01-25] MEDS: atorvaSTATin 20 MG Tab PO SCH (21:11)
[2017-01-26] MEDS: metroNIDAZOLE/Normal Saline 500 MG in Premix Bag 1 BAG IV SCH ×3 (00:35→17:47)
[2017-01-26] MEDS: Lactated Ringers 1,000 ML IV SCH ×2 (00:41→12:27)
[2017-01-26] MEDS: Ketorolac 30 MG/ML SDV IVPUSH PRN ×2 (00:41→22:20)
[2017-01-26] MEDS: Magnesium Sulfate/Water 2 GM in Premix Bag 1 BAG IV SCH (03:04)
[2017-01-26] MEDS: Ciprofloxacin in D5W 400 MG in Premix Bag 1 BAG IV SCH ×4 (06:02→18:12)
[2017-01-26] MEDS: Insulin Aspart 100 Units/ML 3 ML Pen SUBCUT SCH ×4 (08:42→20:49)
--- NOTE | 2017-01-26 09:02 | PCM.CONS ---
H&P History of Present Illness - General Admit Problem/Dx: Admission Diagnosis/Problem Admission Diagnosis/Problem Thickened area in the Right Colon seen on CT Scan. Abdominal Pain and diarrhea for 6 days Source of Information: Patient History Limitations: Reports: No Limitations - History of Present Illness Onset of Symptoms: Reports: Gradual Duration of Symptoms: Reports: Day(s): (6 days ) Location: Reports: Abdomen, Generalized Quality: Reports: Ache, Throbbing, Other (cramping. ) Severity: Mild Improves with: Reports: Medication Worsens with: Reports: Eating Context: Reports: Other (Resting Comfortably in bed. ) Associated Symptoms: Reports: Weakness, Other (diarhhea ) Lower Abdominal Pain Score (Numeric/FACES): 1 - Related Data Allergies/Adverse Reactions: Allergies Allergy/AdvReac Type Severity Reaction Status Date / Time hydromorphone [From Dilaudid] AdvReac Nausea and Verified 01/25/17 06:26 Vomiting Home Medications: Home Meds Aspirin [Vince Chewable] 81 mg PO DAILY 01/17/17 [History] Cyclobenzaprine [Flexeril] 10 mg PO BID 01/17/17 [History] Ibuprofen [Ibuprofen] 600 mg PO Q8H PRN 01/17/17 [History] Lisinopril [Lisinopril] 10 mg PO DAILY 01/17/17 [History] SitaGLIPtin [Januvia] 100 mg PO DAILY 01/17/17 [History] atorvaSTATin [Lipitor] 40 mg PO BEDTIME 01/17/17 [History] metFORMIN [Glucophage] 1,000 mg PO BIDMEALS 01/17/17 [History] Past Medical History HEENT History: Reports: Impaired Vision Cardiovascular History: Reports: High Cholesterol, Hypertension Genitourinary History: Reports: Pyelonephritis [employer]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 General: Reports: Weakness HEENT: Reports: No Symptoms Pulmonary: Reports: No Symptoms Cardiovascular: Reports: No Symptoms Gastrointestinal: Reports: Other (see chief complaint) Genitourinary: Reports: No Symptoms Musculoskeletal: Reports: No Symptoms Skin: Reports: No Symptoms Psychiatric: Reports: No Symptoms Neurological: Reports: No Symptoms Hematologic/Lymphatic: Reports: No Symptoms Immunologic: Reports: No Symptoms Exam - Exam Exam: See Below - Vital Signs Vital Signs: Last Vital Signs Temp 96.5 F 01/26/17 07:14 Pulse 76 01/26/17 07:14 Resp 16 01/26/17 07:14 BP 110/61 01/26/17 07:14 Pulse Ox 98 01/26/17 07:14 Weight: 143 lb - Exam Quality Assessment: DVT Prophylaxis General: Alert, Oriented, Cooperative HEENT: PERRLA, Conjunctiva Clear Neck: Supple, Trachea Midline Lungs: Clear to Auscultation, Normal Respiratory Effort Cardiovascular: Regular Rate, Regular Rhythm GI/Abdominal Exam: Soft, Other (minimal generalized tenderness in all 4 quadrants ) (Female) Exam: Deferred Rectal (Female) Exam: Deferred Back Exam: Normal Inspection, Full Range of Motion Extremities: Normal Inspection, Normal Range of Motion Skin: Warm, Dry, Intact Neurological: Cranial Nerves Intact, Reflexes Equal Bilateral Neuro Extensive - Mental Status: Alert, Oriented x3, Normal Mood/Affect Neuro Extensive - Motor, Sensory, Reflexes: CN II-XII Intact Psychiatric: Alert, Normal Affect, Normal Mood - Patient Data Lab Results Last 24 hrs: Laboratory Results - last 24 hr 01/26/17 01/26/17 Range/Units 05:00 05:00 WBC 23.5 H (4.5-11.0) K/uL RBC 3.64 (3.30-5.50) M/uL Hgb 11.2 L (12.0-15.0) g/dL Hct 31.6 L (36.0-48.0) % MCV 87 (80-98) fL MCH 31 (27-31) pg MCHC 35 (32-36) % Plt Count 334 (150-400) K/uL Neut % (Auto) 29 L (36-66) % Lymph % (Auto) 14 L (24-44) % [place] % (Auto) 4 (2-6) % Eos % (Auto) 54 H (2-4) % Baso % (Auto) 0 (0-1) % Sodium 143 (140-148) mmol/L Potassium 3.3 L (3.6-5.2) mmol/L Chloride 112 H (100-108) mmol/L Carbon Dioxide 23 (21-32) mmol/L Anion Gap 11.3 (5.0-14.0) mmol/L BUN 7 D (7-18) mg/dL Creatinine 0.6 (0.6-1.0) mg/dL Est Cr Clr Drug Dosing 75.90 mL/min Estimated GFR (MDRD) > 60 (>60) Glucose 141 H (74-106) mg/dL Calcium 7.1 L (8.5-10.1) mg/dL Magnesium 2.5 H D (1.8-2.4) mg/dL Result Diagrams: 01/26/17 05:00 01/26/17 05:00 Consult PN Assessment/Plan POD#: 0 Procedures: Procedures EMERGENCY DEPT VISIT (01/17/17) EMERGENCY DEPT VISIT (01/23/14) THER/PROPH/DIAG INJ SC/IM (01/17/17) X-RAY EXAM L-S SPINE 2/3 VWS (01/17/17) (1) Abdominal pain SNOMED Code(s): 31386156 Code(s): R10.9 - UNSPECIFIED ABDOMINAL PAIN Current Visit: Yes (2) Diarrhea SNOMED Code(s): 09529751 Code(s): R19.7 - DIARRHEA, UNSPECIFIED Current Visit: No Problem List Initiated/Reviewed/Updated: Yes My Orders Last 24 Hours: Colonscopy with IV Sedation Scheduled for today Orders to be written after procedure Remain NPO Thank You for this Consultation Shelby Stinson
[2017-01-26] MEDS ORDERED: fentaNYL 100 MCG/2 ML SDV ONE (09:34)
[2017-01-26] MEDS ORDERED: Propofol 200 MG/20 ML SDV ONE (09:34)
[2017-01-26] MEDS ORDERED: Midazolam 1 MG/ML 2 ML SDV ONE (09:34)
--- NOTE | 2017-01-26 10:36 | PCM.PN ---
- General Info Date of Service: 01/26/17 Functional Status: Reports: Pain Controlled, Ambulating, Urinating - Review of Systems General: Denies: Fever, Chills Pulmonary: Reports: No Symptoms Cardiovascular: Reports: No Symptoms Gastrointestinal: Reports: No Symptoms Systems Review Comment:: Ms. Dan has improved significantly over the past 24 hours, abdominal pain and diarrhea have essentially resolved . Vital signs have been stable and she has remained afebrile. Colonoscopy with Dr. Broderick pending this morning. - Patient Data Vitals - Most Recent: Last Vital Signs Temp 96.5 F 01/26/17 07:14 Pulse 76 01/26/17 07:14 Resp 16 01/26/17 07:14 BP 110/61 01/26/17 07:14 Pulse Ox 98 01/26/17 07:14 Weight - Most Recent: 143 lb I&O - Last 24 Hours: Intake & Output 01/25/17 01/26/17 01/26/17 22:59 06:59 14:59 Intake Total 3543 1530 100 Balance 3543 1530 100 Lab Results Last 24 Hours: Laboratory Results - last 24 hr 01/26/17 01/26/17 Range/Units 05:00 05:00 WBC 23.5 H (4.5-11.0) K/uL RBC 3.64 (3.30-5.50) M/uL Hgb 11.2 L (12.0-15.0) g/dL Hct 31.6 L (36.0-48.0) % MCV 87 (80-98) fL MCH 31 (27-31) pg MCHC 35 (32-36) % Plt Count 334 (150-400) K/uL Neut % (Auto) 29 L (36-66) % Lymph % (Auto) 14 L (24-44) % [place] % (Auto) 4 (2-6) % Eos % (Auto) 54 H (2-4) % Baso % (Auto) 0 (0-1) % Sodium 143 (140-148) mmol/L Potassium 3.3 L (3.6-5.2) mmol/L Chloride 112 H (100-108) mmol/L Carbon Dioxide 23 (21-32) mmol/L Anion Gap 11.3 (5.0-14.0) mmol/L BUN 7 D (7-18) mg/dL Creatinine 0.6 (0.6-1.0) mg/dL Est Cr Clr Drug Dosing 75.90 mL/min Estimated GFR (MDRD) > 60 (>60) Glucose 141 H (74-106) mg/dL Calcium 7.1 L (8.5-10.1) mg/dL Magnesium 2.5 H D (1.8-2.4) mg/dL Med Orders - Current: Current Medications Acetaminophen (Tylenol) 650 mg PO Q4H PRN PRN Reason: Pain (Mild 1-3)/fever Last Admin: 01/24/17 21:40 Dose: 650 mg Aspirin (Aspirin) 81 mg PO DAILY [facility] Last Admin: 01/25/17 09:09 Dose: 81 mg Atorvastatin Calcium (Lipitor) 40 mg PO BEDTIME [facility] Last Admin: 01/25/17 21:11 Dose: 40 mg Dextrose (Glutose 15) 15 gm PO ONETIME PRN PRN Reason: Hypoglycemia Dextrose/Water (Dextrose 50% In Water) 50 ml IV ONETIME PRN PRN Reason: Hypoglycemia Enoxaparin Sodium (Lovenox) 40 mg SUBCUT DAILY [facility] Last Admin: 01/25/17 09:10 Dose: 40 mg Hydromorphone HCl (Dilaudid) 0.5 mg IVPUSH Q2H PRN PRN Reason: Pain Last Admin: 01/24/17 17:49 Dose: 0.5 mg Ciprofloxacin/Dextrose 400 mg/ (Premix) 200 mls @ 200 mls/hr IV Q12H [facility] Last Admin: 01/26/17 06:02 Dose: 200 mls/hr Lactated Ringer's (Ringers, Lactated) 1,000 mls @ 125 mls/hr IV ASDIRECTED [facility] Last Admin: 01/26/17 00:41 Dose: 125 mls/hr Metronidazole 500 mg/ Premix 100 mls @ 100 mls/hr IV Q8H [facility] Last Admin: 01/26/17 08:06 Dose: 100 mls/hr Potassium Chloride 20 meq/Lidocaine HCl 2 ml/ Sodium Chloride 112 mls @ 56 mls/ hr IV Q2H [facility] Stop: 01/26/17 13:59 Influenza Virus Vaccine (Fluzone Quad [id number]) 60 mcg IM .ONCE ONE Stop: 01/26/17 16:01 Insulin Aspart (Novolog) 0 unit SUBCUT QIDACANDBED [facility] PRN Reason: Protocol Last Admin: 01/26/17 08:42 Dose: Not Given Ketorolac Tromethamine (Toradol) 30 mg IVPUSH Q6H PRN PRN Reason: Pain Stop: 01/29/17 21:54 Last Admin: 01/26/17 00:41 Dose: 30 mg Lisinopril (Prinivil) 10 mg PO DAILY [facility] Last Admin: 01/25/17 09:09 Dose: 10 mg Magnesium Oxide (Magnesium Oxide) 400 mg PO BID [facility] Last Admin: 01/25/17 21:11 Dose: 400 mg Ondansetron HCl (Zofran) 4 mg IV Q4H PRN PRN Reason: Nausea/Vomiting Last Admin: 01/24/17 19:38 Dose: 4 mg Oxycodone HCl (Oxycodone) 5 mg PO Q4H PRN PRN Reason: Pain (moderate 4-6) Sodium Chloride (Saline Flush) 10 ml FLUSH ASDIRECTED PRN PRN Reason: Keep Vein Open Discontinued Medications Bisacodyl (Dulcolax) 10 mg PO ONETIME ONE Stop: 01/25/17 13:18 Last Admin: 01/25/17 13:52 Dose: Not Given Bisacodyl (Dulcolax) 10 mg PO ONETIME ONE Stop: 01/25/17 14:31 Last Admin: 01/25/17 14:28 Dose: 10 mg Bisacodyl (Dulcolax) 10 mg PO ONETIME ONE Stop: 01/25/17 18:01 Last Admin: 01/25/17 17:10 Dose: 10 mg Fentanyl (Sublimaze) Confirm Administered Dose 100 mcg .ROUTE .STK-MED ONE Stop: 01/26/17 09:35 Sodium Chloride (Normal Saline) 1,000 mls @ 999 mls/hr IV ASDIRECTED [facility] Last Admin: 01/24/17 14:56 Dose: 999 mls/hr Sodium Chloride (Normal Saline) 70 mls @ 3 mls/sec IV ONETIME ONE Stop: 01/24/17 14:30 Last Admin: 01/24/17 14:49 Dose: 3 mls/sec Magnesium Sulfate 2 gm/ Premix 50 mls @ 25 mls/hr IV Q6H [facility] Stop: 01/26/17 05:59 Last Admin: 01/26/17 03:04 Dose: 25 mls/hr Potassium Chloride 20 meq/Lidocaine HCl 2 ml/ Sodium Chloride 112 mls @ 56 mls/ hr IV Q2H [facility] Stop: 01/25/17 13:59 Last Admin: 01/25/17 13:29 Dose: 56 mls/hr Influenza Virus Vaccine (Pharmacy To Dose - Influenza Vaccine) 1 each IM ONETIME ONE Stop: 01/24/17 17:43 Influenza Virus Vaccine (Fluzone Quad [id number]) 60 mcg IM .ONCE ONE Stop: 01/24/17 17:46 Last Admin: 01/24/17 19:50 Dose: Not Given Iopamidol (Isovue-300 (61%)) 100 ml IV . DIRECTED PRN PRN Reason: RADIOLOGY EXAM Last Admin: 01/24/17 14:49 Dose: 100 ml Midazolam HCl (Versed 1 Mg/Ml) Confirm Administered Dose 2 mg .ROUTE .STK-MED ONE Stop: 01/26/17 09:35 Polyethylene Glycol (Miralax) 238 gm PO ONETIME ONE Stop: 01/25/17 17:01 Last Admin: 01/25/17 17:05 Dose: 238 gm Propofol (Diprivan 20 Ml) Confirm Administered Dose 200 mg .ROUTE .STK-MED ONE Stop: 01/26/17 09:35 Sodium Chloride (Saline Flush) 10 ml FLUSH ONETIME PRN PRN Reason: PER RADIOLOGY PROTOCOL Last Admin: 01/24/17 14:49 Dose: 10 ml - Exam General: Alert, Oriented, Cooperative, No Acute Distress Lungs: Clear to Auscultation, Normal Respiratory Effort Cardiovascular: Regular Rate, Regular Rhythm, No Murmurs GI/Abdominal Exam: Normal Bowel Sounds, Soft, Non-Tender, No Distention Extremities: Non-Tender, No Pedal Edema Skin: Warm, Dry, Intact - Problem List Review Problem List Initiated/Reviewed/Updated: Yes - My Orders Last 24 Hours: My Active Orders 01/25/17 12:56 Verify Patient Consent Obtain [RC] ASDIRECTED 01/25/17 12:57 Notify Provider Consults [RC] ASDIRECTED Consult to Physician [CONS] Routine 01/26/17 10:00 Potassium Chloride 20 meq Lidocaine 1% [Xylocaine 1%] 2 ml Sodium Chloride 0.9 % [Normal Saline] 100 ml IV Q2H 01/26/17 11:30 GLUCOSE POC LAB TO COLLECT [POC] QIDACANDBED 01/26/17 16:00 FLU Vacc [id number] 36Mos UP/PF [Fluzone Quad [id number]] 60 mcg IM .ONCE ONE 01/26/17 16:30 GLUCOSE POC LAB TO COLLECT [POC] QIDACANDBED 01/26/17 21:00 GLUCOSE POC LAB TO COLLECT [POC] QIDACANDBED 01/26/17 Breakfast NPO After Midnight [Nothing per Oral After Midnight Diet] [DIET] 01/27/17 05:00 BASIC METABOLIC PANEL,BMP [CHEM] Timed CBC WITH AUTO DIFF [HEME] Timed 01/27/17 07:30 GLUCOSE POC LAB TO COLLECT [POC] QIDACANDBED 01/27/17 11:30 GLUCOSE POC LAB TO COLLECT [POC] QIDACANDBED 01/27/17 16:30 GLUCOSE POC LAB TO COLLECT [POC] QIDACANDBED 01/27/17 21:00 GLUCOSE POC LAB TO COLLECT [POC] QIDACANDBED 01/28/17 07:30 GLUCOSE POC LAB TO COLLECT [POC] QIDACANDBED 01/28/17 11:30 GLUCOSE POC LAB TO COLLECT [POC] QIDACANDBED 01/28/17 16:30 GLUCOSE POC LAB TO COLLECT [POC] QIDACANDBED 01/28/17 21:00 GLUCOSE POC LAB TO COLLECT [POC] QIDACANDBED 01/29/17 07:30 GLUCOSE POC LAB TO COLLECT [POC] QIDACANDBED 01/29/17 11:30 GLUCOSE POC LAB TO COLLECT [POC] QIDACANDBED 01/29/17 16:30 GLUCOSE POC LAB TO COLLECT [POC] QIDACANDBED 01/29/17 21:00 GLUCOSE POC LAB TO COLLECT [POC] QIDACANDBED 01/30/17 07:30 GLUCOSE POC LAB TO COLLECT [POC] QIDACANDBED 01/30/17 11:30 GLUCOSE POC LAB TO COLLECT [POC] QIDACANDBED 01/30/17 16:30 GLUCOSE POC LAB TO COLLECT [POC] QIDACANDBED 01/30/17 21:00 GLUCOSE POC LAB TO COLLECT [POC] QIDACANDBED 01/31/17 07:30 GLUCOSE POC LAB TO COLLECT [POC] QIDACANDBED 01/31/17 11:30 GLUCOSE POC LAB TO COLLECT [POC] QIDACANDBED 01/31/17 16:30 GLUCOSE POC LAB TO COLLECT [POC] QIDACANDBED 01/31/17 21:00 GLUCOSE POC LAB TO COLLECT [POC] QIDACANDBED 02/01/17 07:30 GLUCOSE POC LAB TO COLLECT [POC] QIDACANDBED 02/01/17 11:30 GLUCOSE POC LAB TO COLLECT [POC] QIDACANDBED 02/01/17 16:30 GLUCOSE POC LAB TO COLLECT [POC] QIDACANDBED 02/01/17 21:00 GLUCOSE POC LAB TO COLLECT [POC] QIDACANDBED 02/02/17 07:30 GLUCOSE POC LAB TO COLLECT [POC] QIDACANDBED 02/02/17 11:30 GLUCOSE POC LAB TO COLLECT [POC] QIDACANDBED 02/02/17 16:30 GLUCOSE POC LAB TO COLLECT [POC] QIDACANDBED 02/02/17 21:00 GLUCOSE POC LAB TO COLLECT [POC] QIDACANDBED 02/03/17 07:30 GLUCOSE POC LAB TO COLLECT [POC] QIDACANDBED 02/03/17 11:30 GLUCOSE POC LAB TO COLLECT [POC] QIDACANDBED 02/03/17 16:30 GLUCOSE POC LAB TO COLLECT [POC] QIDACANDBED 02/03/17 21:00 GLUCOSE POC LAB TO COLLECT [POC] QIDACANDBED 02/04/17 07:30 GLUCOSE POC LAB TO COLLECT [POC] QIDACANDBED 02/04/17 11:30 GLUCOSE POC LAB TO COLLECT [POC] QIDACANDBED 02/04/17 16:30 GLUCOSE POC LAB TO COLLECT [POC] QIDACANDBED - Plan Plan:: ASSESSMENT AND PLAN COLITIS/ENTERITIS-associated with profuse diarrhea, cramping abdominal pain, and dehydration. White blood cell count remains elevated, abdominal pain and diarrhea have essentially resolved -Saline lock IV after colonoscopy -Colonoscopy pending -Pain medication and antiemetic therapy as needed -IV ciprofloxacin and Flagyl TYPE 2 DIABETES MELLITUS -4 times a day glucometers -Hold metformin and Amaryl -Low-dose sliding scale NovoLog until she resumes diet MAINTENANCE ISSUES -DVT prophylaxis; Lovenox 40 mg subcutaneous daily -GI prophylaxis; not indicated -Koehler catheter; not indicated -Nutrition; nothing by mouth -Nicotine dependence; not required CODE STATUS-FULL CODE ADMISSION STATUS-patient will be admitted to inpatient status, expect at least a 2 night hospital stay for evaluation and management of problems as outlined above. At the time of this admission I do not reasonably expected evaluation and management of this problem will require more than a 96 hour hospital stay. DISPOSITION-anticipate discharge to home after the hospital stay. PRIMARY CARE PROVIDER-Dr. Harper
[2017-01-26] MEDS: Magnesium Oxide 400 MG Tab PO SCH ×2 (12:21→20:49)
[2017-01-26] MEDS: Lisinopril 10 MG Tab PO SCH (12:21)
[2017-01-26] MEDS: Aspirin 81 MG Tab.Chew PO SCH (12:21)
[2017-01-26] MEDS: Enoxaparin 40 MG/0.4 ML Syringe SUBCUT SCH (12:22)
[2017-01-26] MEDS: Potassium Chloride 20 MEQ, Lidocaine 1% 2 ML in Sodium Chloride 0.9% 100 ML IV SCH ×2 (12:26→14:33)
[2017-01-26] MEDS ORDERED: FLU Vacc QS 2017-18 (36mos UP)/PF 60 MCG/0.5 ML Syringe IM ONE (16:00)
[2017-01-26] MEDS: Dextrose 5%-Lactated Ringers 1,000 ML IV SCH (17:46)
[2017-01-26] MEDS: Potassium Phosphates 20 MMOLE in Sodium Chloride 0.9% 250 ML IV SCH ×2 (19:39→23:15)
[2017-01-26] MEDS: atorvaSTATin 20 MG Tab PO SCH (20:49)
[2017-01-27] MEDS: metroNIDAZOLE/Normal Saline 500 MG in Premix Bag 1 BAG IV SCH ×3 (01:10→18:22)
[2017-01-27] MEDS: Potassium Phosphates 20 MMOLE in Sodium Chloride 0.9% 250 ML IV SCH (02:39)
[2017-01-27] MEDS: Ciprofloxacin in D5W 400 MG in Premix Bag 1 BAG IV SCH ×4 (05:15→21:44)
[2017-01-27] MEDS: Magnesium Oxide 400 MG Tab PO SCH ×2 (08:05→21:44)
[2017-01-27] MEDS: Insulin Aspart 100 Units/ML 3 ML Pen SUBCUT SCH ×4 (08:10→21:34)
[2017-01-27] MEDS ORDERED: Calcium Gluconate 2 GM in Sodium Chloride 0.9% 100 ML IV ONE (08:30)
--- NOTE | 2017-01-27 08:37 | PN ---
DATE OF SERVICE: 01/27/2017 SUBJECTIVE: Ghazala will be having an exploratory laparotomy for a mass and right colectomy. Today, she has been afebrile. Dr. Broderick has completed preoperative teaching. Discussed possible risks and possible complications. She has no questions. Pain is 1-2, generalized, afebrile. REVIEW OF SYSTEMS: Remainder of review of systems negative for any pertinent positives and negatives. OBJECTIVE: GENERAL: Ghazala Dan is a 62-year-old female. She is alert and orientated. VITAL SIGNS: TPR 98.7, 62, 14, blood pressure 115/62. HEENT: Negative. NECK: Supple. HEART: Regular rate and rhythm. LUNGS: Clear. ABDOMEN: Soft, very minimally tender. EXTREMITIES: Without peripheral edema. ASSESSMENT: Mass, right cecum. PLAN: Discontinue Lovenox, Toradol, aspirin and lisinopril. We will leave orders to be written postoperatively. Shelby Chatman PA-C /[id number]
[2017-01-27] MEDS ORDERED: Naloxone 0.4 MG/ML SDV IVPUSH PRN (10:48)
[2017-01-27] MEDS ORDERED: Dexamethasone 4 MG/ML SDV ONE (11:28)
[2017-01-27] MEDS ORDERED: Neostigmine Methylsulfate 1 MG/ML 5 ML Syringe ONE (11:28)
[2017-01-27] MEDS ORDERED: Rocuronium 50 MG/5 ML Vial ONE (11:28)
[2017-01-27] MEDS ORDERED: Ondansetron 4 MG/2 ML SDV ONE ×2 (11:28→16:10)
[2017-01-27] MEDS ORDERED: Succinylcholine 200 MG/10 ML MDV ONE (11:28)
[2017-01-27] MEDS ORDERED: Propofol 200 MG/20 ML SDV ONE (11:28)
[2017-01-27] MEDS ORDERED: Glycopyrrolate 0.2 MG/ML 5 ML MDV ONE (11:28)
[2017-01-27] MEDS ORDERED: Sodium Chloride 0.9% 10 ML ONE (11:29)
[2017-01-27] MEDS ORDERED: Midazolam 1 MG/ML 2 ML SDV ONE (11:30)
[2017-01-27] MEDS: Dextrose 5%-Lactated Ringers 1,000 ML IV SCH ×2 (13:03→21:04)
[2017-01-27] MEDS ORDERED: Meropenem 500 MG SDV ONE (13:12)
--- NOTE | 2017-01-27 14:27 | PCM.PN ---
- General Info Date of Service: 01/27/17 Functional Status: Reports: Pain Controlled - Review of Systems General: Denies: Fever, Chills Pulmonary: Reports: No Symptoms Cardiovascular: Reports: No Symptoms Gastrointestinal: Reports: No Symptoms. Denies: Abdominal Pain Systems Review Comment:: This patient has remained stable over the past 24 hours. Colonoscopy performed yesterday by Dr. Broderick showing a right colon mass and associated colitis. She has had some diarrhea but has received a bowel prep for surgery today. Abdominal pain has essentially resolved, vital signs have been stable, she has been afebrile. - Patient Data Vitals - Most Recent: Last Vital Signs Temp 97.1 F 01/27/17 10:44 Pulse 82 01/27/17 10:44 Resp 18 01/27/17 10:44 BP 125/67 01/27/17 10:44 Pulse Ox 98 01/27/17 10:44 Weight - Most Recent: 143 lb I&O - Last 24 Hours: Intake & Output 01/26/17 01/27/17 01/27/17 22:59 06:59 14:59 Intake Total 780 1700 120 Output Total 800 Balance 780 900 120 Lab Results Last 24 Hours: Laboratory Results - last 24 hr 01/27/17 01/27/17 Range/Units 05:50 05:50 WBC 20.3 H (4.5-11.0) K/uL RBC 3.72 (3.30-5.50) M/uL Hgb 10.7 L (12.0-15.0) g/dL Hct 32.4 L (36.0-48.0) % MCV 87 (80-98) fL MCH 29 (27-31) pg MCHC 33 (32-36) % Plt Count 337 (150-400) K/uL Neut % (Auto) 33 L (36-66) % Lymph % (Auto) 13 L (24-44) % [place] % (Auto) 4 (2-6) % Eos % (Auto) 50 H (2-4) % Baso % (Auto) 0 (0-1) % Sodium 141 (140-148) mmol/L Potassium 4.4 (3.6-5.2) mmol/L Chloride 111 H (100-108) mmol/L Carbon Dioxide 26 (21-32) mmol/L Anion Gap 8.4 (5.0-14.0) mmol/L BUN 8 (7-18) mg/dL Creatinine 0.6 (0.6-1.0) mg/dL Est Cr Clr Drug Dosing 75.90 mL/min Estimated GFR (MDRD) > 60 (>60) Glucose 170 H (74-106) mg/dL Calcium 6.9 L* (8.5-10.1) mg/dL Med Orders - Current: Current Medications Acetaminophen (Tylenol) 650 mg PO Q4H PRN PRN Reason: Pain (Mild 1-3)/fever Last Admin: 01/24/17 21:40 Dose: 650 mg Atorvastatin Calcium (Lipitor) 40 mg PO BEDTIME [facility] Last Admin: 01/26/17 20:49 Dose: 40 mg Dextrose (Glutose 15) 15 gm PO ONETIME PRN PRN Reason: Hypoglycemia Dextrose/Water (Dextrose 50% In Water) 50 ml IV ONETIME PRN PRN Reason: Hypoglycemia Hydromorphone HCl (Dilaudid) 0.5 mg IVPUSH Q2H PRN PRN Reason: Pain Last Admin: 01/24/17 17:49 Dose: 0.5 mg Ciprofloxacin/Dextrose 400 mg/ (Premix) 200 mls @ 200 mls/hr IV Q12H [facility] Last Admin: 01/27/17 05:15 Dose: 200 mls/hr Metronidazole 500 mg/ Premix 100 mls @ 100 mls/hr IV Q8H [facility] Last Admin: 01/27/17 08:07 Dose: 100 mls/hr Dextrose/Lactated Ringer's (Dextrose 5%-Lactated Ringers) 1,000 mls @ 100 mls/ hr IV ASDIRECTED [facility] Last Admin: 01/27/17 13:03 Dose: 100 mls/hr Cefoxitin Sodium 2 gm/ Sodium (Chloride) 50 mls @ 100 mls/hr IV ONCALL ONE Stop: 01/27/17 14:29 Fentanyl 2,500 mcg/ Sodium (Chloride) 250 mls @ 0 mls/hr EPIDUR TITRATE [facility]; Titrate PRN Reason: Protocol Insulin Aspart (Novolog) 0 unit SUBCUT QIDACANDBED [facility] PRN Reason: Protocol Last Admin: 01/27/17 11:56 Dose: 2 unit Magnesium Oxide (Magnesium Oxide) 400 mg PO BID [facility] Last Admin: 01/27/17 08:05 Dose: Not Given Naloxone HCl (Narcan) 0.1 mg IVPUSH Q5M PRN PRN Reason: RESP RATE LESS THAN 6/MINUTE Ondansetron HCl (Zofran) 4 mg IV Q4H PRN PRN Reason: Nausea/Vomiting Last Admin: 01/24/17 19:38 Dose: 4 mg Oxycodone HCl (Oxycodone) 5 mg PO Q4H PRN PRN Reason: Pain (moderate 4-6) Sodium Chloride (Saline Flush) 10 ml FLUSH ASDIRECTED PRN PRN Reason: Keep Vein Open Discontinued Medications Alvimopan (Entereg) 12 mg PO ONCALL ONE Stop: 01/27/17 12:01 Last Admin: 01/27/17 11:55 Dose: 12 mg Aspirin (Aspirin) 81 mg PO DAILY [facility] Last Admin: 01/26/17 12:21 Dose: 81 mg Bisacodyl (Dulcolax) 10 mg PO ONETIME ONE Stop: 01/25/17 13:18 Last Admin: 01/25/17 13:52 Dose: Not Given Bisacodyl (Dulcolax) 10 mg PO ONETIME ONE Stop: 01/25/17 14:31 Last Admin: 01/25/17 14:28 Dose: 10 mg Bisacodyl (Dulcolax) 10 mg PO ONETIME ONE Stop: 01/25/17 18:01 Last Admin: 01/25/17 17:10 Dose: 10 mg Dexamethasone (Dexamethasone) Confirm Administered Dose 4 mg .ROUTE .STK-MED ONE Stop: 01/27/17 11:29 Enoxaparin Sodium (Lovenox) 40 mg SUBCUT DAILY [facility] Last Admin: 01/26/17 12:22 Dose: 40 mg Fentanyl (Sublimaze) Confirm Administered Dose 100 mcg .ROUTE .STK-MED ONE Stop: 01/26/17 09:35 Fentanyl Citrate (Fentanyl) Confirm Administered Dose 500 mcg .ROUTE .STK-MED ONE Stop: 01/27/17 11:29 Glycopyrrolate (Robinul) Confirm Administered Dose 1 mg .ROUTE .STK-MED ONE Stop: 01/27/17 11:29 Sodium Chloride (Normal Saline) 1,000 mls @ 999 mls/hr IV ASDIRECTED [facility] Last Admin: 01/24/17 14:56 Dose: 999 mls/hr Sodium Chloride (Normal Saline) 70 mls @ 3 mls/sec IV ONETIME ONE Stop: 01/24/17 14:30 Last Admin: 01/24/17 14:49 Dose: 3 mls/sec Lactated Ringer's (Ringers, Lactated) 1,000 mls @ 125 mls/hr IV ASDIRECTED [facility] Last Admin: 01/26/17 12:27 Dose: 125 mls/hr Magnesium Sulfate 2 gm/ Premix 50 mls @ 25 mls/hr IV Q6H [facility] Stop: 01/26/17 05:59 Last Admin: 01/26/17 03:04 Dose: 25 mls/hr Potassium Chloride 20 meq/Lidocaine HCl 2 ml/ Sodium Chloride 112 mls @ 56 mls/ hr IV Q2H [facility] Stop: 01/25/17 13:59 Last Admin: 01/25/17 13:29 Dose: 56 mls/hr Potassium Chloride 20 meq/Lidocaine HCl 2 ml/ Sodium Chloride 112 mls @ 56 mls/ hr IV Q2H [facility] Stop: 01/26/17 13:59 Last Admin: 01/26/17 14:33 Dose: 56 mls/hr Potassium Phosphate 20 mmole/ (Sodium Chloride) 256.6667 mls @ 85 mls/hr IV Q3H [facility] Stop: 01/27/17 03:29 Last Admin: 01/27/17 02:39 Dose: 85 mls/hr Calcium Gluconate 2 gm/ Sodium (Chloride) 120 mls @ 100 mls/hr IV ONETIME ONE Stop: 01/27/17 09:41 Last Admin: 01/27/17 10:56 Dose: 100 mls/hr Sodium Chloride (Normal Saline) Confirm Administered Dose 10 mls @ as directed .ROUTE .STK-MED ONE Stop: 01/27/17 11:30 Influenza Virus Vaccine (Pharmacy To Dose - Influenza Vaccine) 1 each IM ONETIME ONE Stop: 01/24/17 17:43 Influenza Virus Vaccine (Fluzone Quad ) 60 mcg IM .ONCE ONE Stop: 01/24/17 17:46 Last Admin: 01/24/17 19:50 Dose: Not Given Influenza Virus Vaccine (Fluzone Quad ) 60 mcg IM .ONCE ONE Stop: 01/26/17 16:01 Last Admin: 01/26/17 15:15 Dose: 60 mcg Iopamidol (Isovue-300 (61%)) 100 ml IV . DIRECTED PRN PRN Reason: RADIOLOGY EXAM Last Admin: 01/24/17 14:49 Dose: 100 ml Ketorolac Tromethamine (Toradol) 30 mg IVPUSH Q6H PRN PRN Reason: Pain Stop: 01/29/17 21:54 Last Admin: 01/26/17 22:20 Dose: 30 mg Lisinopril (Prinivil) 10 mg PO DAILY OZ Last Admin: 01/26/17 12:21 Dose: 10 mg Meropenem (Merrem) Confirm Administered Dose 500 mg .ROUTE .STK-MED ONE Stop: 01/27/17 13:13 Midazolam HCl (Versed 1 Mg/Ml) Confirm Administered Dose 2 mg .ROUTE .STK-MED ONE Stop: 01/26/17 09:35 Midazolam HCl (Versed 1 Mg/Ml) Confirm Administered Dose 2 mg .ROUTE .STK-MED ONE Stop: 01/27/17 11:31 Neostigmine Methylsulfate (Neostigmine) Confirm Administered Dose 5 mg .ROUTE .STK-MED ONE Stop: 01/27/17 11:29 Ondansetron HCl (Zofran) Confirm Administered Dose 4 mg .ROUTE .STK-MED ONE Stop: 01/27/17 11:29 Polyethylene Glycol (Miralax) 238 gm PO ONETIME ONE Stop: 01/25/17 17:01 Last Admin: 01/25/17 17:05 Dose: 238 gm Propofol (Diprivan 20 Ml) Confirm Administered Dose 200 mg .ROUTE .STK-MED ONE Stop: 01/26/17 09:35 Propofol (Diprivan 20 Ml) Confirm Administered Dose 200 mg .ROUTE .STK-MED ONE Stop: 01/27/17 11:29 Rocuronium [place] (Zemuron) Confirm Administered Dose 50 mg .ROUTE .STK-MED ONE Stop: 01/27/17 11:29 Sodium Chloride (Saline Flush) 10 ml FLUSH ONETIME PRN PRN Reason: PER RADIOLOGY PROTOCOL Last Admin: 01/24/17 14:49 Dose: 10 ml Succinylcholine Chloride (Quelicin) Confirm Administered Dose 200 mg .ROUTE .STK -MED ONE Stop: 01/27/17 11:29 - Exam Quality Assessment: DVT Prophylaxis General: Alert, Oriented, Cooperative, No Acute Distress Lungs: Clear to Auscultation, Normal Respiratory Effort Cardiovascular: Regular Rate, Regular Rhythm, No Murmurs GI/Abdominal Exam: Normal Bowel Sounds, Soft, Non-Tender, No Distention Extremities: Non-Tender, No Pedal Edema Skin: Warm, Dry, Intact - Problem List Review Problem List Initiated/Reviewed/Updated: Yes - My Orders Last 24 Hours: My Active Orders 01/27/17 16:30 GLUCOSE POC LAB TO COLLECT [POC] QIDACANDBED 01/27/17 21:00 GLUCOSE POC LAB TO COLLECT [POC] QIDACANDBED 01/28/17 07:30 GLUCOSE POC LAB TO COLLECT [POC] QIDACANDBED 01/28/17 11:30 GLUCOSE POC LAB TO COLLECT [POC] QIDACANDBED 01/28/17 16:30 GLUCOSE POC LAB TO COLLECT [POC] QIDACANDBED 01/28/17 21:00 GLUCOSE POC LAB TO COLLECT [POC] QIDACANDBED 01/29/17 07:30 GLUCOSE POC LAB TO COLLECT [POC] QIDACANDBED 01/29/17 11:30 GLUCOSE POC LAB TO COLLECT [POC] QIDACANDBED 01/29/17 16:30 GLUCOSE POC LAB TO COLLECT [POC] QIDACANDBED 01/29/17 21:00 GLUCOSE POC LAB TO COLLECT [POC] QIDACANDBED 01/30/17 07:30 GLUCOSE POC LAB TO COLLECT [POC] QIDACANDBED 01/30/17 11:30 GLUCOSE POC LAB TO COLLECT [POC] QIDACANDBED 01/30/17 16:30 GLUCOSE POC LAB TO COLLECT [POC] QIDACANDBED 01/30/17 21:00 GLUCOSE POC LAB TO COLLECT [POC] QIDACANDBED 01/31/17 07:30 GLUCOSE POC LAB TO COLLECT [POC] QIDACANDBED 01/31/17 11:30 GLUCOSE POC LAB TO COLLECT [POC] QIDACANDBED 01/31/17 16:30 GLUCOSE POC LAB TO COLLECT [POC] QIDACANDBED 01/31/17 21:00 GLUCOSE POC LAB TO COLLECT [POC] QIDACANDBED 02/01/17 07:30 GLUCOSE POC LAB TO COLLECT [POC] QIDACANDBED 02/01/17 11:30 GLUCOSE POC LAB TO COLLECT [POC] QIDACANDBED 02/01/17 16:30 GLUCOSE POC LAB TO COLLECT [POC] QIDACANDBED 02/01/17 21:00 GLUCOSE POC LAB TO COLLECT [POC] QIDACANDBED 02/02/17 07:30 GLUCOSE POC LAB TO COLLECT [POC] QIDACANDBED 02/02/17 11:30 GLUCOSE POC LAB TO COLLECT [POC] QIDACANDBED 02/02/17 16:30 GLUCOSE POC LAB TO COLLECT [POC] QIDACANDBED 02/02/17 21:00 GLUCOSE POC LAB TO COLLECT [POC] QIDACANDBED 02/03/17 07:30 GLUCOSE POC LAB TO COLLECT [POC] QIDACANDBED 02/03/17 11:30 GLUCOSE POC LAB TO COLLECT [POC] QIDACANDBED 02/03/17 16:30 GLUCOSE POC LAB TO COLLECT [POC] QIDACANDBED 02/03/17 21:00 GLUCOSE POC LAB TO COLLECT [POC] QIDACANDBED 02/04/17 07:30 GLUCOSE POC LAB TO COLLECT [POC] QIDACANDBED 02/04/17 11:30 GLUCOSE POC LAB TO COLLECT [POC] QIDACANDBED 02/04/17 16:30 GLUCOSE POC LAB TO COLLECT [POC] QIDACANDBED - Plan Plan:: ASSESSMENT AND PLAN COLITIS/ENTERITIS-diarrhea improved except for bowel prep and abdominal pain has resolved. Right colon mass noted on colonoscopy with associated area of colitis. -Right colon resection today by Dr. Broderick -Postoperative care per Dr. Broderick -IV ciprofloxacin and Flagyl TYPE 2 DIABETES MELLITUS -4 times a day glucometers -Hold metformin and Amaryl -Low-dose sliding scale NovoLog until she resumes diet MAINTENANCE ISSUES -DVT prophylaxis; Lovenox 40 mg subcutaneous daily -GI prophylaxis; not indicated -Koehler catheter; not indicated -Nutrition; nothing by mouth -Nicotine dependence; not required CODE STATUS-FULL CODE ADMISSION STATUS-patient will be admitted to inpatient status, expect at least a 2 night hospital stay for evaluation and management of problems as outlined above. At the time of this admission I do not reasonably expected evaluation and management of this problem will require more than a 96 hour hospital stay. DISPOSITION-anticipate discharge to home after the hospital stay. PRIMARY CARE PROVIDER-Dr. Harper Hospitalist service will sign off on the patient is she is otherwise medically stable. If we can be of further assistance in medical management during her hospital stay please feel free to reconsult.
[2017-01-27] MEDS ORDERED: Scopolamine 1.5 MG Transdermal Patch ONE (16:10)
[2017-01-27] MEDS ORDERED: fentaNYL 100 MCG/2 ML SDV ONE (17:45)
[2017-01-27] MEDS ORDERED: Labetalol 20 MG/4 ML Syringe ONE (17:56)
[2017-01-27] MEDS ORDERED: Scopolamine 1.5 MG Transdermal Patch TRDERM ONE (18:00)
[2017-01-27] MEDS: cefOXitin 2 GM in Sodium Chloride 0.9% 50 ML IV ONE ×2 (18:25→21:05)
[2017-01-27] MEDS ORDERED: Lactated Ringers 1,000 ML ONE (18:45)
[2017-01-27] MEDS ORDERED: Naloxone 0.4 MG/ML SDV IV PRN (20:23)
[2017-01-27] MEDS ORDERED: diphenhydrAMINE 50 MG/ML SDV IVPUSH PRN (20:27)
[2017-01-27] MEDS ORDERED: fentaNYL 2,500 MCG in Sodium Chloride 0.9% 200 ML EPIDUR SCH (20:30)
[2017-01-27] MEDS ORDERED: Scopolamine 1.5 MG Transdermal Patch TOP ONE (20:30)
[2017-01-27] MEDS ORDERED: Meperidine PF 50 MG/ML Syringe IM PRN (20:38)
[2017-01-27] MEDS: atorvaSTATin 20 MG Tab PO SCH (21:44)
[2017-01-27] MEDS: Metoclopramide 10 MG/2 ML SDV IVPUSH SCH (21:45)
[2017-01-27] MEDS: cefOXitin 2 GM in Sodium Chloride 0.9% 50 ML IV SCH (23:43)
[2017-01-28] MEDS: metroNIDAZOLE/Normal Saline 500 MG in Premix Bag 1 BAG IV SCH ×4 (01:06→23:59)
[2017-01-28] MEDS ORDERED: Acetaminophen 1,000 MG in Premix Bag 1 BAG IV SCH (02:00)
[2017-01-28] MEDS: Metoclopramide 10 MG/2 ML SDV IVPUSH SCH ×4 (03:26→21:11)
[2017-01-28] MEDS: cefOXitin 2 GM in Sodium Chloride 0.9% 50 ML IV SCH ×3 (05:12→17:33)
[2017-01-28] MEDS: Dextrose 5%-Lactated Ringers 1,000 ML IV SCH (05:17)
[2017-01-28] MEDS: Ciprofloxacin in D5W 400 MG in Premix Bag 1 BAG IV SCH ×4 (06:18→18:25)
[2017-01-28] MEDS: Insulin Aspart 100 Units/ML 3 ML Pen SUBCUT SCH ×4 (08:30→21:11)
[2017-01-28] MEDS: fentaNYL 2,500 MCG in Sodium Chloride 0.9% 200 ML EPIDUR SCH (10:02)
[2017-01-28] MEDS: Naloxone 0.4 MG in Dextrose 5%-Lactated Ringers 1,000 ML IV SCH (10:05)
[2017-01-28] MEDS: Bisacodyl 5 MG Tab PO SCH ×2 (10:41→20:14)
[2017-01-28] MEDS: metFORMIN 500 MG Tab PO SCH ×2 (10:41→16:45)
[2017-01-28] MEDS: Magnesium Oxide 400 MG Tab PO SCH ×2 (10:42→20:14)
[2017-01-28] MEDS: Ibuprofen 600 MG Tab PO SCH ×3 (12:06→21:10)
[2017-01-28] MEDS: Lisinopril 10 MG Tab PO SCH (12:07)
[2017-01-28] MEDS: Acetaminophen 500 MG Tab PO SCH ×3 (12:10→21:11)
[2017-01-28] MEDS: atorvaSTATin 20 MG Tab PO SCH (20:14)
[2017-01-29] MEDS: Naloxone 0.4 MG in Dextrose 5%-Lactated Ringers 1,000 ML IV SCH ×2
[2017-01-29] MEDS: Metoclopramide 10 MG/2 ML SDV IVPUSH SCH ×5 (03:15→21:19)
[2017-01-29] MEDS: Ibuprofen 600 MG Tab PO SCH ×4 (03:19→21:13)
[2017-01-29] MEDS: Acetaminophen 500 MG Tab PO SCH ×4 (03:19→21:14)
[2017-01-29] MEDS: Ciprofloxacin in D5W 400 MG in Premix Bag 1 BAG IV SCH ×4 (05:26→17:38)
[2017-01-29] MEDS ORDERED: Lidocaine 1% with EPINEPHrine 1:100,000 50 ML MDV ONE (06:39)
[2017-01-29] MEDS ORDERED: Meropenem 500 MG SDV ONE (06:39)
[2017-01-29] MEDS ORDERED: Bupivacaine 0.5% 50 ML MDV ONE (06:39)
[2017-01-29] MEDS: fentaNYL 2,500 MCG in Sodium Chloride 0.9% 200 ML EPIDUR SCH (06:57)
[2017-01-29] MEDS ORDERED: Midazolam 1 MG/ML 2 ML SDV ONE (07:36)
[2017-01-29] MEDS ORDERED: Propofol 200 MG/20 ML SDV ONE (07:36)
[2017-01-29] MEDS ORDERED: fentaNYL 100 MCG/2 ML SDV ONE (07:36)
[2017-01-29] MEDS ORDERED: Lactated Ringers 1,000 ML ONE (07:44)
[2017-01-29] MEDS ORDERED: Magnesium Hydroxide 400 MG/5 ML Susp 30 ML Cup PO PRN (09:06)
[2017-01-29] MEDS: Insulin Aspart 100 Units/ML 3 ML Pen SUBCUT SCH ×4 (09:39→21:27)
[2017-01-29] MEDS: Magnesium Oxide 400 MG Tab PO SCH ×2 (09:44→21:13)
[2017-01-29] MEDS: Lisinopril 10 MG Tab PO SCH (09:45)
[2017-01-29] MEDS: metFORMIN 500 MG Tab PO SCH ×2 (09:49→16:46)
[2017-01-29] MEDS: Bisacodyl 5 MG Tab PO SCH ×2 (09:49→21:13)
[2017-01-29] MEDS: metroNIDAZOLE/Normal Saline 500 MG in Premix Bag 1 BAG IV SCH ×2 (09:51→16:46)
[2017-01-29] MEDS: Dextrose 5%-Lactated Ringers 1,000 ML IV SCH (12:43)
[2017-01-29] MEDS ORDERED: Magnesium Hydroxide 400 MG/5 ML Susp 30 ML Cup PO ONE (17:00)
[2017-01-29] MEDS: atorvaSTATin 20 MG Tab PO SCH (21:13)
[2017-01-30] MEDS: Cyclobenzaprine 10 MG Tab PO PRN ×2 (00:36→21:08)
[2017-01-30] MEDS: metroNIDAZOLE/Normal Saline 500 MG in Premix Bag 1 BAG IV SCH (00:36)
[2017-01-30] MEDS: Dextrose 5%-Lactated Ringers 1,000 ML IV SCH (00:41)
[2017-01-30] MEDS: Ibuprofen 600 MG Tab PO SCH ×4 (05:23→21:05)
[2017-01-30] MEDS: Acetaminophen 500 MG Tab PO SCH ×6 (05:24→22:28)
[2017-01-30] MEDS: Metoclopramide 10 MG/2 ML SDV IVPUSH SCH (05:24)
[2017-01-30] MEDS: Ciprofloxacin in D5W 400 MG in Premix Bag 1 BAG IV SCH ×2 (06:27)
[2017-01-30] MEDS: Insulin Aspart 100 Units/ML 3 ML Pen SUBCUT SCH ×4 (07:51→21:24)
[2017-01-30] MEDS: metFORMIN 500 MG Tab PO SCH ×2 (07:59→16:41)
[2017-01-30] MEDS: Bisacodyl 5 MG Tab PO SCH (08:00)
[2017-01-30] MEDS: Magnesium Oxide 400 MG Tab PO SCH ×2 (08:01→21:04)
[2017-01-30] MEDS: Lisinopril 10 MG Tab PO SCH (08:01)
--- NOTE | 2017-01-30 08:48 | PN ---
DATE OF SERVICE: 01/28/2017 The patient has been afebrile with stable vital signs. Her output has been satisfactory. Her blood sugars are a little bit high, but we will restart her metformin and Januvia today. Otherwise, we will continue the enhanced recovery protocol, starting the ibuprofen and Tylenol orally today and Senna and Dulcolax oral tablets. We will plan for delayed primary closure and removal of the epidural catheter and Koehler catheter tomorrow morning. Chris Broderick MD /[id number]
--- NOTE | 2017-01-30 09:21 | PN ---
DATE OF SERVICE: 01/30/2017 SUBJECTIVE: Ghazala is postop day 3. Her pain is controlled. Vital signs, she has been afebrile. Activity has been good. Oral intake 915. MEREDITH drain put out 2 mL of a light pink serosanguineous drainage. She has had several bowel movements. Remainder of review of systems negative for any pertinent positives and negatives. OBJECTIVE: GENERAL: Ghazala Dan is a pleasant 62-year-old female. VITAL SIGNS: TPR 97.7, 85, 16, and blood pressure 147/71. HEENT: Negative. NECK: Supple. HEART: Regular rate and rhythm. LUNGS: Clear. ABDOMEN: Dressings dry and intact. Abdominal binder is on and MEREDITH drain is intact. ASSESSMENT: 1. Delayed primary closure on 01/29/2017. 2. Exploratory laparotomy with right colectomy for colon mass on 01/27/2017. PLAN: 1. Continue ibuprofen, Tylenol, and Flexeril. 2. Discontinue Aquacel dressing. 3. Discontinue IV and IV medications. 4. Good pulmonary toilet encouraged. 5. Plan to discharge in [facility] Shelby Chatman PA-C /[id number]
--- NOTE | 2017-01-30 09:51 | PN ---
DATE OF SERVICE: 01/29/2017 The patient has been afebrile with stable vital signs. Oral intake was fair. Pain control with epidural continued okay. She has been now on the scheduled Tylenol and ibuprofen. Plan will be to proceed with a delayed primary closure of the abdominal incision today along with removal of the epidural catheter and Koehler catheter and restarting the diet. We will continue the bowel stimulation. Chris Broderick MD /[id number]
--- NOTE | 2017-01-30 10:38 | OR ---
DATE OF PROCEDURE: 01/29/2017 PREOPERATIVE DIAGNOSIS: Open abdominal incision. POSTOPERATIVE DIAGNOSIS: Open abdominal incision. OPERATIVE PROCEDURE: Delayed primary closure of open abdominal incision. ANESTHESIA: Local plus IV sedation. INDICATION FOR PROCEDURE: The patient is 48 hours status post a right colectomy. At the time of the procedure, she was felt to be high risk for wound infection if a primary closure was undertaken. Given this, a delayed primary closure was scheduled for today. Potential risks of the procedure, including bleeding and perforation and aspiration of gastric contents secondary to the sedation, were reviewed with the patient, and she wishes to proceed. DETAILS OF PROCEDURE: The patient was taken to the operating room and placed in a supine position. IV sedation was administered, after which the abdominal dressing was taken down, and her incision was inspected and found to be clean. Incision was then prepped and draped, anesthetized with 1% lidocaine mixed with Marcaine and irrigated with meropenem-containing saline solution. A 10-[place] round Jam-Dueñas drain was then placed through a stab wound lateral to the incision, which was then closed with 2 layers of 3-0 and 4-0 Vicryl stitch deep and then yamini for the skin. The drain was fixed with 3-0 Vicryl stitch as well. The patient was taken to the recovery room in a satisfactory condition. Chris Broderick MD /[id number]
[2017-01-30] MEDS: atorvaSTATin 20 MG Tab PO SCH (21:05)
[2017-01-31] MEDS: Ibuprofen 600 MG Tab PO SCH ×2 (04:06→10:06)
[2017-01-31] MEDS: Acetaminophen 500 MG Tab PO SCH ×2 (04:06→10:06)
[2017-01-31] MEDS: Insulin Aspart 100 Units/ML 3 ML Pen SUBCUT SCH (08:31)
[2017-01-31] MEDS: metFORMIN 500 MG Tab PO SCH (08:32)
[2017-01-31] MEDS: Lisinopril 10 MG Tab PO SCH (08:33)
[2017-01-31] MEDS: Magnesium Oxide 400 MG Tab PO SCH (08:33)
--- NOTE | 2017-01-31 09:52 | DISCH ---
ADMISSION DIAGNOSES: Abdominal pain, dehydration, eosinophilia, diarrhea, low back pain, chronic left shoulder pain, hypertension, and type 2 diabetes. DISCHARGE DIAGNOSES: Exploratory laparotomy, right colectomy, and mobilization of omentum into pelvis for large sessile mass in the cecum, on 01/27/2017; delayed primary closure on 01/29/2017. HISTORY: Ghazala Dan was noted to have a large cecal mass. After preoperative evaluation and discussion of possible risks and possible complications, she wished to proceed with surgical procedure. HOSPITAL COURSE: Ghazala had her surgery on 01/27/2017. She had no operative complications. On postop day #1, she was started on her regular medications. Her blood sugars were monitored. On postop day #2, she had delayed primary closure. She continued on pain medicine of ibuprofen and Tylenol. On postop day #3, she continued to progress. Vital signs were stable. On postop day #4, she was able to be discharged to home. PHYSICAL EXAMINATION: GENERAL: Ghazala Dan is a pleasant 62-year-old female. VITAL SIGNS: TPR is 97.8, 77, 16, and blood pressure 116/93. HEENT: Negative. NECK: Supple. HEART: Regular rate and rhythm. LUNGS: Clear. ABDOMEN: Stapled incision looks good. MEREDITH drain discontinued prior to discharge. EXTREMITIES: Without peripheral edema. DISPOSITION: Discharged to home. CONDITION: Stable and improving. FOLLOWUP APPOINTMENT: With Shelby Chatman PA-C, on 02/10/2017 at 9 a.m. DISCHARGE MEDICATIONS: New prescriptions; 1. Tylenol Extra Strength 1000 mg q.6 hours. 2. Flexeril 10 mg q.8 hours p.r.n. muscle spasms, #30. 3. Ibuprofen 600 mg every 6 hours with meals, #56. 4. She is to resume her home medication of aspirin 81 mg p.o. daily, Flexeril 10 mg oral twice daily, lisinopril 10 mg oral daily, Januvia 100 mg oral daily, Lipitor 40 mg oral at bedtime, and metformin 1000 mg oral twice daily. DISCHARGE DIET: Usual diet as tolerated. Drink 8 to 10 glasses of water a day. ACTIVITY: No lifting greater than 10 pounds for 6 weeks. Driving, do not drive for 1 week. Shower/bathing, may shower. DISCHARGE INSTRUCTIONS: Notify provider of fever, increased pain, nausea, or vomiting. Keep site clean and dry. Wear abdominal binder for 2 weeks and then as tolerated. Use incentive spirometer 10 times every hour while awake for 1 week.
--- NOTE | 2017-02-02 09:46 | OR ---
DATE OF PROCEDURE: 01/27/2017 PREOPERATIVE DIAGNOSIS: Sessile mass of cecum. POSTOPERATIVE DIAGNOSIS: Sessile mass of cecum. PROCEDURES: Exploratory laparotomy with: 1. Right colectomy (18013). 2. Mobilization of omentum into pelvis (70510). ANESTHESIA: General plus epidural. INDICATION FOR PROCEDURE: This is a 62-year-old female presenting with an endoscopically identified mass in the cecum. This was a large sessile mass and after preoperative evaluation and discussion, she wished to proceed with a right colectomy. Potential risks of the procedure including bleeding, infection, leaks from various GI tract closures, problems with possible recurrence of any malignancy that might be present, as well as possibility of cardiopulmonary, septic, or hemorrhagic complications leading to were discussed, and the patient wishes to proceed. DETAILS OF PROCEDURE: The patient was taken to the operating room and placed in a supine position. After an epidural catheter anesthetic was induced, general endotracheal anesthesia was induced, and a Koehler catheter was placed, and the abdomen was prepped and draped. An oblique right mid abdominal incision was then made and carried down through the skin and subcutaneous tissue and muscular fascia layers and peritoneum. Upon entering the peritoneal cavity, general exploration was undertaken. The mass in the cecum could easily be palpated. There was no fixation of the cecum to any of the surrounding structures, however, and otherwise there appeared to be some lymphadenopathy within the ileocolic chain, but otherwise no other lymphadenopathy. There was no ascites, peritoneal seeding, or other visceral metastases identified. At this point, the peritoneum to the distal small bowel around the appendix, cecum, and right colon was divided, and those structures were mobilized medially. Some omentum was divided off the hepatic flexure in the right side of the transverse colon with Harmonic scalpel and cautery. Upon medial mobilization of the entire right colon along with hepatic flexure, the underlying duodenum and right ureter were confirmed to be uninvolved in what would be the resection plane. The distal small bowel was then divided with IDALMIS vascular load and the transverse colon to the right of the middle colic vessels divided with a IDALMIS purple load. The mesentery, which included lower ligation of the ileocolic chain and right colic chains, was then accomplished with combination of vascular and mesenteric yamini, and the specimen delivered from the field. Off the field, the specimen was opened, and the mass, which was roughly the size of a silver dollar in terms of diameter, was confirmed in the specimen. At this point, no further problems were noted. GI tract continuity was then reestablished with a [id number] ileocolic anastomosis using 2 internal firings and IDALMIS grimaldo loads. The common opening was then closed transversely with the same stapler, angles anastomosed, and mesenteric defect was then approximated with some 3-0 Vicryl stitch, along with fibrin sealant. In event, there might be any lower abdominal or pelvic recurrence, requiring radiation treatment, the omentum was mobilized down into the pelvis and tacked there with some 3-0 Vicryl stitches, thus displacing the small bowel to a large extent out of the pelvis. At that point, the abdomen was being irrigated with meropenem-containing saline solution. A single Jam-Dueñas drain was then placed through stab wound in the right upper quadrant and taken along the area of the anastomosis in the right colic gutter. The fascia was then closed with 2 layers of #2 Vicryl stitch. The skin and subcutaneous tissue were felt to be at high risk for a wound infection, should a primary closure will be undertaken. Given this, these were packed open for a planned delayed primary closure in 48 hours. The patient was taken to the recovery room in satisfactory condition. Chris Broderick MD /[id number]
--- NOTE | 2017-03-01 16:05 | OR ---
DATE OF PROCEDURE: 01/26/2017 PREOPERATIVE DIAGNOSES: Diarrhea with inflammation versus mass in the cecum. POSTOPERATIVE DIAGNOSES: Cecal mass. OPERATIVE PROCEDURE: Flexible colonoscopy with biopsies of cecal mass. ANESTHESIA: IV sedation. INDICATIONS FOR PROCEDURE: A 62-year-old female presenting with some diarrhea and abdominal pain. A CT scan was obtained which was suggestive of enteritis, also mass effect in the area of the cecum. The patient is to undergo a colonoscopy for diagnostic purposes. Potential risks of the procedure including bleeding and perforation were discussed and the patient wishes to proceed. DETAILS OF THE PROCEDURE: The patient was taken to the operating room and placed in a left lateral decubitus position. IV sedation was administered, after which the initial digital rectal exam was performed and was unremarkable. Colonoscope was passed into the rectum with retroflexion revealing uncomplicated hemorrhoidal columns, scope was eventually passed to the level of the cecum. The patient was noted to have a mass in the cecum. This was a large sessile mass consistent with a carcinoma or advanced adenoma. Multiple biopsies were obtained from that area and no bleeding from the biopsy sites were seen. The scope was then withdrawn. No additional abnormalities were noted. The prep was generally quite good. The patient was taken to the recovery room in satisfactory condition. There were no complications. We will discuss situation with the patient as she wakes up from anesthesia to determine whether or not she wishes to proceed with immediate resection. Chris Broderick MD /[id number]
== END 2017-01-31 10:20 | disposition home or self-care (01) | DRG 331 ==
LOC: JP.ED 12:59 → JP.MS 16:39 → JP.2SS 01-27 19:40
PROVIDERS: ADMIT Hospitalist; ATTEND Hospitalist
PROC: 0DBH8ZX Excision of Cecum, Via Natural or Artificial Opening Endoscopic, Diagnostic (ICD-10-PCS; 2017-01-26)
PROC: 0DTF0ZZ Resection of Right Large Intestine, Open Approach (ICD-10-PCS; principal; 2017-01-27)
PROC: 0WQF0ZZ Repair Abdominal Wall, Open Approach (ICD-10-PCS; 2017-01-29)
DX: D12.0 Benign neoplasm of cecum (principal); E86.0 Dehydration; I10 Essential (primary) hypertension; E11.9 Type 2 diabetes mellitus without complications; Z79.84 Long term (current) use of oral hypoglycemic drugs; Z23 Encounter for immunization; E78.00 Pure hypercholesterolemia, unspecified; H54.7 Unspecified visual loss; D72.1 Eosinophilia; M54.5 Low back pain; M25.512 Pain in left shoulder; G89.29 Other chronic pain; Z79.82 Long term (current) use of aspirin; Z88.5 Allergy status to narcotic agent; R19.7 Diarrhea, unspecified
CPT/HCPCS: 36415; 74177; 80048; 80053; 81001; 82378; 82962; 83735; 84100; 85025; 85027; 86140; 86850; 86900; 86901; 87177; 87209; 87493; 88305; 88309; 90686; 94762; 96374; 96375; 99285-25; A9270-GY; G0008; J0131; J0330; J0610; J0694; J0744; J1100; J1170; J1650; J1885; J2185; J2250; J2310; J2405; J2704; J2710; J2765; J3010; J3475; J3480; J3490; J7030; J7040; J7042; J7050; J7120; Q9967

== ENCOUNTER 2019-03-24 20:24 | Emergency (ER) | payer BC, OTHER ==
--- NOTE | 2019-03-24 21:23 | EDM.PDOC ---
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 Has not had any associated pain. Her last menses was many yrs ago. The amt of blood loss is described as minimal. 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: Reports: Other (see below) (none) denies pain Pain Score (Numeric/FACES): 0 - Related Data Allergies Allergy/AdvReac Type Severity Reaction Status Date / Time hydromorphone [From Dilaudid] AdvReac Nausea and Verified 03/24/19 20:44 Vomiting Home Meds: Home Meds Aspirin [Vince Chewable Aspirin] 81 mg PO DAILY 01/17/17 [History] Cyclobenzaprine [Flexeril] 10 mg PO BID 01/17/17 [History] Lisinopril 10 mg PO DAILY 01/17/17 [History] atorvaSTATin [Lipitor] 40 mg PO BEDTIME 01/17/17 [History] metFORMIN [Glucophage] 1,000 mg PO BIDMEALS 01/17/17 [History] Ibuprofen [IJD: Ibuprofen] 600 mg PO Q6H PRN 03/24/19 [History] Ozempic 0.5 mg SUBCUT WEEKLY 03/24/19 [History] rOPINIRole [Requip] 0.25 mg PO DAILY 03/24/19 [History] Past Medical History HEENT History: Reports: Impaired Vision Cardiovascular History: Reports: High Cholesterol, Hypertension Genitourinary History: Reports: Pyelonephritis 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 Constitutional: Reports: No Symptoms : Reports: Other (small amt of vaginal bleeding.) ED EXAM, RENAL/ - Physical Exam Exam: See Below Exam Limited By: No Limitations General Appearance: Alert, WD/WN, No Apparent Distress Eye Exam: Bilateral Eye: Normal Inspection, Other (no conjunctival pallor) Ears: Hearing Grossly Normal Nose: Normal Inspection, No Blood Throat/Mouth: Normal Inspection, Normal Lips, Normal Oropharynx, Normal Voice, No Airway Compromise Head: Atraumatic, Normocephalic Neck: Normal Inspection Respiratory/Chest: No Respiratory Distress, Lungs Clear, Normal Breath Sounds, No Accessory Muscle Use Cardiovascular: Regular Rate, Rhythm, No Edema Extremities: Normal Inspection Neurological: Alert, Oriented, CN II-XII Intact, Normal Cognition, No Motor/ Sensory Deficits Psychiatric: Normal Affect, Normal Mood Skin Exam: Warm, Dry, Intact, Normal Color, No Rash Course - Vital Signs Last Recorded V/S: Last Vital Signs Temp 36.4 C 03/24/19 20:50 Pulse 93 03/24/19 20:50 Resp 16 03/24/19 20:50 BP 130/73 03/24/19 20:50 Pulse Ox 100 03/24/19 20:50 - Orders/Labs/Meds Labs: Laboratory Tests 03/24/19 Range/Units 20:52 Urine Color Yellow (YELLOW) Urine Appearance Clear (CLEAR) Urine pH 6.0 (5.0-8.0) Ur Specific [place] >= 1.030 (1.008-1.030) Urine Protein Negative (NEGATIVE) mg/dL Urine Glucose (UA) 100 H (NEGATIVE) mg/dL Urine Ketones Negative (NEGATIVE) mg/dL Urine Occult Blood Small H (NEGATIVE) Urine Nitrite Negative (NEGATIVE) Urine Bilirubin Negative (NEGATIVE) Urine Urobilinogen 0.2 (0.2-1.0) EU/dL Ur Leukocyte Esterase Trace H (NEGATIVE) Urine RBC 0-5 (0-5) Urine WBC 5-10 H (0-5) Ur Epithelial Cells Rare Urine Bacteria Few Urine Mucus Moderate Departure - Departure Time of Disposition: 21:21 Disposition: Home, Self-Care 01 Condition: Fair Clinical Impression: Postmenopausal vaginal bleeding - Discharge Information *PRESCRIPTION DRUG MONITORING PROGRAM REVIEWED*: No *COPY OF PRESCRIPTION DRUG MONITORING REPORT IN PATIENT PABLITO: No Instructions: Postmenopausal Bleeding Referrals: Stevie Harper MD [Primary Care Provider] - Additional Instructions: Someone will contact you regarding seeing a cloth coverer. Drink more water in general so your urine is light yellow in color. Sepsis Event Note - Evaluation Sepsis Screening Result: No Definite Risk - Focused Exam Vital Signs: Vital Signs Temp Pulse Resp BP Pulse Ox 03/24/19 20:50 36.4 C 93 16 130/73 100 03/24/19 20:36 36.4 C 93 16 130/73 100 Date Exam was Performed: 03/24/19 Time Exam was Performed: 21:17
== END 2019-03-24 21:28 | disposition home or self-care (01) ==
LOC: JP.ED 20:24
DX: N95.0 Postmenopausal bleeding (principal); E78.00 Pure hypercholesterolemia, unspecified; I10 Essential (primary) hypertension; E11.9 Type 2 diabetes mellitus without complications; Z88.5 Allergy status to narcotic agent; Z79.82 Long term (current) use of aspirin; Z79.84 Long term (current) use of oral hypoglycemic drugs; Z79.899 Other long term (current) drug therapy
CPT/HCPCS: 81001; 99284

== ENCOUNTER 2019-07-21 06:32 | Emergency (ER) | payer BC ==
--- NOTE | 2019-07-21 07:41 | EDM.PDOC ---
ED HPI GENERAL MEDICAL PROBLEM - General Chief Complaint: General Stated Complaint: PAINFUL BLISTER Time Seen by Provider: 07/21/19 07:10 Source of Information: Reports: Patient History Limitations: Reports: No Limitations - History of Present Illness INITIAL COMMENTS - FREE TEXT/NARRATIVE: This is a 64-year-old female who presents with concerns of a genital sore. She reports that she for started noticing symptoms approximately 3 days ago. She has had a sore and discomfort along the panty line of the left inner thigh. This is progressed for the last 3 days. It is now more painful. She reports she has no history of STI or HSV infection. She was last sexually active in October. left;labia Pain Score (Numeric/FACES): 4 - Related Data Allergies Allergy/AdvReac Type Severity Reaction Status Date / Time hydromorphone [From Dilaudid] AdvReac Nausea and Verified 07/21/19 07:06 Vomiting Home Meds: Home Meds Aspirin [Vince Chewable Aspirin] 81 mg PO DAILY 01/17/17 [History] Cyclobenzaprine [Flexeril] 10 mg PO BID 01/17/17 [History] Lisinopril 10 mg PO DAILY 01/17/17 [History] atorvaSTATin [Lipitor] 40 mg PO BEDTIME 01/17/17 [History] metFORMIN [Glucophage] 1,000 mg PO BIDMEALS 01/17/17 [History] Ibuprofen [IJD: Ibuprofen] 600 mg PO Q6H PRN 03/24/19 [History] Ozempic 0.5 mg SUBCUT WEEKLY 03/24/19 [History] rOPINIRole [Requip] 0.25 mg PO DAILY 03/24/19 [History] Past Medical History HEENT History: Reports: Impaired Vision Cardiovascular History: Reports: High Cholesterol, Hypertension Genitourinary History: Reports: Pyelonephritis 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: Endocrine/Metabolic History: Reports: Diabetes, Type II Social & Family History - Family History Family Medical History: Noncontributory - Tobacco Use Smoking Status *Q: Never Smoker - Caffeine Use Caffeine Use: Reports: Soda - Recreational Drug Use Recreational Drug Use: No ED ROS GENERAL - Review of Systems Review Of Systems: See Below Constitutional: Reports: No Symptoms HEENT: Reports: No Symptoms Respiratory: Reports: No Symptoms Cardiovascular: Reports: No Symptoms Endocrine: Reports: No Symptoms GI/Abdominal: Reports: No Symptoms : Reports: No Symptoms Musculoskeletal: Reports: No Symptoms Skin: Reports: Lesions Neurological: Reports: No Symptoms Psychiatric: Reports: No Symptoms Hematologic/Lymphatic: Reports: No Symptoms Immunologic: Reports: No Symptoms ED EXAM, GENERAL - Physical Exam Exam: See Below Exam Limited By: No Limitations General Appearance: Alert, No Apparent Distress Ears: Normal External Exam Nose: Normal Inspection Throat/Mouth: Normal Inspection Head: Atraumatic, Normocephalic Neck: Normal Inspection Respiratory/Chest: No Respiratory Distress Cardiovascular: Regular Rate, Rhythm GI/Abdominal: No Distention (Female) Exam: Other (Round, approximately 1 cm x 1 cm white removed, nonvesicular lesion of the left genital area lateral and inferior of vulva) Course - Vital Signs Last Recorded V/S: Last Vital Signs Temp 36.7 C 07/21/19 07:04 Pulse 86 07/21/19 07:04 Resp 20 07/21/19 07:04 BP 173/96 H 07/21/19 07:04 Pulse Ox 100 07/21/19 07:04 - Orders/Labs/Meds Orders: Active Orders 24 hr Category Date Time Status CHLAMYDIA TRACHOMATIS, JENIFER Urgent Lab 07/21/19 07:35 Ordered CHLAMYDIA/GC AMPLIFICATION Urgent Lab 07/21/19 07:35 Ordered HSV JENIFER Urgent Lab 07/21/19 07:36 Ordered - Re-Assessments/Exams Free Text/Narrative Re-Assessment/Exam: 63-year-old presents with concerns of a genital lesion. This is evolved over the last 4 days. Is not clear to me the cause of a lesion on exam. Is not herpetiform nor consistent with chancroid or syphilis. There is no abscess or cellulitis. We have swabbed her for HSV and STI. Instructed her to pad the area to avoid friction from clothing and follow-up with her primary doctor urgently this week. 07/21/19 07:54 Departure - Departure Time of Disposition: 07:40 Disposition: Home, Self-Care 01 Clinical Impression: Genital lesion, female - Discharge Information Instructions: How to Take a Sitz Bath Referrals: PCP,None [Primary Care Provider] - Forms: ED Department Discharge Additional Instructions: Please follow up with your primary doctor early next week to recheck the sore and follow up on results from our lab. Sepsis Event Note - Evaluation Sepsis Screening Result: No Definite Risk - Focused Exam Vital Signs: Vital Signs Temp Pulse Resp BP Pulse Ox 07/21/19 07:04 36.7 C 86 20 173/96 H 100 Date Exam was Performed: 07/21/19 Time Exam was Performed: 07:45 - My Orders Last 24 Hours: My Active Orders 07/21/19 07:35 CHLAMYDIA TRACHOMATIS, JENIFER Urgent CHLAMYDIA/GC AMPLIFICATION Urgent 07/21/19 07:36 HSV JENIFER Urgent - Assessment/Plan Last 24 Hours: My Active Orders 07/21/19 07:35 CHLAMYDIA TRACHOMATIS, JENIFER Urgent CHLAMYDIA/GC AMPLIFICATION Urgent 07/21/19 07:36 HSV JENIFER Urgent
[2019-07-24 11:09] LABS: CHLAMYDIA TRACHOMATIS, NAA Negative (Negative); NEISSERIA GONORRHOEAE, NAA Negative (Negative)
[2019-09-11 01:41] LABS: HSV 1 NAA SEE SEP RPT
[2019-09-11 01:42] LABS: HSV 2 NAA SEE SEP RPT
== END 2019-07-21 08:00 | disposition home or self-care (01) ==
LOC: JP.ED 06:32
DX: N94.89 Other specified conditions associated with female genital organs and menstrual cycle (principal); E78.00 Pure hypercholesterolemia, unspecified; I10 Essential (primary) hypertension; E11.9 Type 2 diabetes mellitus without complications; Z79.899 Other long term (current) drug therapy; Z88.5 Allergy status to narcotic agent; Z79.84 Long term (current) use of oral hypoglycemic drugs; Z79.82 Long term (current) use of aspirin
CPT/HCPCS: 87491; 87529; 87591; 99283

== ENCOUNTER 2019-08-06 16:40 | Emergency (ER) | payer BC ==
--- NOTE | 2019-08-06 17:56 | EDM.PDOC ---
ED HPI GENERAL MEDICAL PROBLEM - General Chief Complaint: Chest Pain Stated Complaint: CHEST PAIN Time Seen by Provider: 08/06/19 17:00 Source of Information: Reports: Patient, Provider History Limitations: Reports: No Limitations - History of Present Illness INITIAL COMMENTS - FREE TEXT/NARRATIVE: 64-year-old patient, diabetic but no history of heart disease, presents with 2 weeks of intermittent left-sided chest pain and pressure as well as muscle cramps and generalized malaise. No shortness of breath, fever, cough or unexplained weight loss. She is a non-smoker. Onset: Gradual (Symptoms have waxed and waned for the last 2 weeks) Location: Reports: Other (Intermittent left anterior chest discomfort with intermittent leg cramps and weakness) Associated Symptoms: Denies: Confusion, Cough, Fever/Chills, Loss of Appetite, Nausea/Vomiting - Related Data Allergies Allergy/AdvReac Type Severity Reaction Status Date / Time No Known Allergies Allergy Verified 08/06/19 16:52 Home Meds: Home Meds Aspirin [Vince Chewable Aspirin] 81 mg PO DAILY 01/17/17 [History] Cyclobenzaprine [Flexeril] 10 mg PO BID 01/17/17 [History] Lisinopril 10 mg PO DAILY 01/17/17 [History] atorvaSTATin [Lipitor] 40 mg PO BEDTIME 01/17/17 [History] metFORMIN [Glucophage] 1,000 mg PO BIDMEALS 01/17/17 [History] Ibuprofen [IJD: Ibuprofen] 600 mg PO Q6H PRN 03/24/19 [History] Ozempic 0.5 mg SUBCUT WEEKLY 03/24/19 [History] rOPINIRole [Requip] 0.25 mg PO DAILY 03/24/19 [History] Past Medical History HEENT History: Reports: Impaired Vision Cardiovascular History: Reports: High Cholesterol, Hypertension Genitourinary History: Reports: Pyelonephritis 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: Endocrine/Metabolic History: Reports: Diabetes, Type II Dermatologic History: Reports: Other (See Below) Other Dermatologic History: genital herpes - Infectious Disease History Infectious Disease History: Reports: Herpes - Past Surgical History GI Surgical History: Reports: Colon, Colonoscopy Other GI Surgeries/Procedures: 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 Female Surgical History: Reports: Tubal Ligation Social & Family History - Family History Family Medical History: Noncontributory - Tobacco Use Smoking Status *Q: Never Smoker - Caffeine Use Caffeine Use: Reports: Soda - Recreational Drug Use Recreational Drug Use: No ED ROS GENERAL - Review of Systems Review Of Systems: See Below Constitutional: Denies: Fever, Chills HEENT: Reports: No Symptoms Respiratory: Reports: Shortness of Breath (Intermittent with activity) Cardiovascular: Reports: Chest Pain (Left anterior chest pain not related to activity or position, no pleuritic pain) GI/Abdominal: Denies: Abdominal Pain, Nausea, Vomiting : Reports: No Symptoms Skin: Reports: Other (Weakness and leg cramps) Neurological: Reports: Weakness ED EXAM, GENERAL - Physical Exam Exam: See Below Exam Limited By: No Limitations General Appearance: Alert, No Apparent Distress Eye Exam: Bilateral Eye: Normal Inspection Head: Atraumatic Neck: Normal Inspection Respiratory/Chest: No Respiratory Distress, Lungs Clear, Other (I could not reproduce chest pain with palpation) Cardiovascular: Regular Rate, Rhythm. No: Extra Beats GI/Abdominal: Soft, Non-Tender Extremities: Normal Inspection, Other (No muscle tenderness or edema). No: No Pedal Edema Neurological: Alert, Oriented, No Motor/Sensory Deficits Psychiatric: Normal Affect, Normal Mood Skin Exam: Warm, Dry EKG INTERPRETATION Rhythm: NSR Course - Vital Signs Last Recorded V/S: Last Vital Signs Temp 97.6 F 08/06/19 16:45 Pulse 92 08/06/19 18:12 Resp 20 08/06/19 18:12 BP 122/74 08/06/19 18:12 Pulse Ox 93 L 08/06/19 18:12 - Orders/Labs/Meds Labs: Laboratory Tests 08/06/19 08/06/19 Range/Units 17:22 17:22 WBC 5.7 (4.5-11.0) K/uL RBC 3.92 (3.30-5.50) M/uL Hgb 11.5 L (12.0-15.0) g/dL Hct 34.0 L (36.0-48.0) % MCV 87 (80-98) fL MCH 29 (27-31) pg MCHC 34 (32-36) % Plt Count 265 (150-400) K/uL Neut % (Auto) 53 (36-66) % Lymph % (Auto) 38 (24-44) % [place] % (Auto) 8 H (2-6) % Eos % (Auto) 1 L (2-4) % Baso % (Auto) 0 (0-1) % Sodium 139 L (140-148) mmol/L Potassium 4.6 (3.6-5.2) mmol/L Chloride 104 (100-108) mmol/L Carbon Dioxide 24 (21-32) mmol/L Anion Gap 15.6 H (5.0-14.0) mmol/L BUN 19 H D (7-18) mg/dL Creatinine 1.0 (0.6-1.0) mg/dL Est Cr Clr Drug Dosing 44.36 mL/min Estimated GFR (MDRD) 56 L (>60) Glucose 92 (74-106) mg/dL Calcium 8.8 D (8.5-10.1) mg/dL Total Bilirubin 0.2 (0.2-1.0) mg/dL AST 21 (15-37) U/L ALT 24 (12-78) U/L Alkaline Phosphatase 83 (46-116) U/L Troponin I < 0.017 (0.000-0.056) ng/mL Total Protein 7.1 (6.4-8.2) g/dL Albumin 3.9 (3.4-5.0) g/dL Globulin 3.2 (2.3-3.5) g/dL Albumin/Globulin Ratio 1.2 (1.2-2.2) - Re-Assessments/Exams Free Text/Narrative Re-Assessment/Exam: 08/06/19 18:23 Patient was completely comfortable while in the emergency room, no symptoms. EKG was negative, 2 view chest x-ray was normal, labs were all normal including negative troponin. I offered to set her up for a stress test later this week but she declined, she will recheck with her primary provider if symptoms persist , and return to the emergency room at any time if worsening. Departure - Departure Time of Disposition: 18:34 Disposition: Home, Self-Care 01 Clinical Impression: Atypical chest pain - Discharge Information Instructions: Nonspecific Chest Pain, Adult, [id number] Referrals: PCP,None [Primary Care Provider] - Forms: ED Department Discharge Care Plan Goals: Rated but return if pain is recurring consistently with activity. Follow-up later this week to discuss results with your regular doctor. Sepsis Event Note - Evaluation Sepsis Screening Result: No Definite Risk - Focused Exam Date Exam was Performed: 08/08/19 Time Exam was Performed: 17:07
--- NOTE | 2019-08-07 10:43 | CR ---
CHEST: 2 view CLINICAL HISTORY:Dyspnea COMPARISON:None FINDINGS: The heart size and pulmonary vascularity are normal. There is some mild fullness in the lower right hilum. This may be superimposed vasculature. No infiltrate effusion or pneumothorax is seen. IMPRESSION: No acute cardiopulmonary process. There is some mild fullness in the inferior right hilum. This may be vasculature. If patient has prior chest films this would be helpful. If made available an addendum report will be issued. If there are no prior studies either short-term follow-up chest x-ray in 6-[address] chest should be considered
== END 2019-08-06 18:34 | disposition home or self-care (01) ==
LOC: JP.ED 16:40
DX: R07.89 Other chest pain (principal); I10 Essential (primary) hypertension; E11.9 Type 2 diabetes mellitus without complications; E78.00 Pure hypercholesterolemia, unspecified; Z79.82 Long term (current) use of aspirin; Z79.899 Other long term (current) drug therapy; Z79.84 Long term (current) use of oral hypoglycemic drugs
CPT/HCPCS: 36415; 71046; 71046-26; 80053; 84484; 85025; 93005; 99285-25

== ENCOUNTER 2019-08-16 05:35 | Emergency (ER) | payer BC ==
--- NOTE | 2019-08-16 06:33 | EDM.PDOC ---
<Eulogio Nielsen - Last Filed: 08/16/19 06:58> ED HPI GENERAL MEDICAL PROBLEM - General Chief Complaint: General Stated Complaint: ABD Time Seen by Provider: 08/16/19 06:20 Source of Information: Reports: Patient History Limitations: Reports: No Limitations - History of Present Illness INITIAL COMMENTS - FREE TEXT/NARRATIVE: 64-year-old female who I saw 10 days ago with nonspecific chest discomfort and shortness of breath arrives today with 3 days of abdominal "gurgling", persistent generalized malaise and continues to have shortness of breath with activity. In the last 2 days while doing laundry she had to stop and rest twice. She is not complaining of the chest discomfort that she was complaining of 10 days ago. At that time I tried to set her up for a stress test but she declined and said she would follow-up with her primary instead, she has not done that. She denies any fevers or chills, she had one bout of emesis last night and has had no diarrhea. No unexplained weight loss. Her gallbladder was removed in 2017. She denies a cough. Onset: Unknown/Unsure Duration: Day(s): (Abdominal symptoms have been for 3 days) Improves with: Reports: None Worsens with: Reports: Other (Increased nausea and shortness of breath with activity) Associated Symptoms: Reports: Loss of Appetite, Malaise, Nausea/Vomiting, Shortness of Breath (With activity), Weakness. Denies: Fever/Chills, Headaches Lower Sacral Pain Score (Numeric/FACES): 8 - Related Data Allergies Allergy/AdvReac Type Severity Reaction Status Date / Time No Known Allergies Allergy Verified 08/16/19 05:48 Home Meds: Home Meds Aspirin [Vince Chewable Aspirin] 81 mg PO DAILY 01/17/17 [History] Cyclobenzaprine [Flexeril] 10 mg PO BID 01/17/17 [History] Lisinopril 10 mg PO DAILY 01/17/17 [History] atorvaSTATin [Lipitor] 40 mg PO BEDTIME 01/17/17 [History] metFORMIN [Glucophage] 1,000 mg PO BIDMEALS 01/17/17 [History] Ibuprofen [IJD: Ibuprofen] 600 mg PO Q6H PRN 03/24/19 [History] Ozempic 0.5 mg SUBCUT WEEKLY 03/24/19 [History] rOPINIRole [Requip] 0.25 mg PO DAILY 03/24/19 [History] Past Medical History HEENT History: Reports: Impaired Vision Cardiovascular History: Reports: High Cholesterol, Hypertension Genitourinary History: Reports: Pyelonephritis [employer] History: Reports: Endocrine/Metabolic History: Reports: Diabetes, Type II Dermatologic History: Reports: Other (See Below) Other Dermatologic History: genital herpes - Infectious Disease History Infectious Disease History: Reports: Herpes - Past Surgical History GI Surgical History: Reports: Colon, Colonoscopy Other GI Surgeries/Procedures: 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 Denies: Fever, Chills HEENT: Reports: No Symptoms Respiratory: Reports: Shortness of Breath. Denies: Cough, Sputum Cardiovascular: Reports: Chest Pain GI/Abdominal: Reports: Abdominal Pain, Nausea, Vomiting. Denies: Constipation, Diarrhea : Reports: No Symptoms Neurological: Reports: Weakness. Denies: Headache Psychiatric: Reports: No Symptoms ED EXAM, GENERAL - Physical Exam Exam: See Below Exam Limited By: No Limitations General Appearance: Alert, No Apparent Distress Eye Exam: Bilateral Eye: Normal Inspection (No jaundice) Head: Atraumatic Neck: Normal Inspection Respiratory/Chest: No Respiratory Distress, Lungs Clear Cardiovascular: Regular Rate, Rhythm, Tachycardia GI/Abdominal: Normal Bowel Sounds, Soft, Other (She has a well-healed surgical scar in the right upper quadrant, some tenderness in the right lower quadrant but no guarding or rebound. No significant focal tenderness) Extremities: No Pedal Edema Neurological: Alert, Oriented Psychiatric: Flat Affect Skin Exam: Warm, Dry Course - Vital Signs Last Recorded V/S: Last Vital Signs Temp 36.3 C 08/16/19 06:01 Pulse 129 H 08/16/19 06:01 Resp 16 08/16/19 06:01 BP 139/93 H 08/16/19 06:01 Pulse Ox 97 08/16/19 06:01 - Orders/Labs/Meds Orders: Active Orders 24 hr Category Date Time Status Chest 2V [CR] Routine Exams 08/16/19 06:26 Taken Labs: Laboratory Tests 08/16/19 08/16/19 08/16/19 Range/Units 06:35 06:35 07:06 WBC 9.2 (4.5-11.0) K/uL RBC 4.77 (3.30-5.50) M/uL Hgb 13.8 D (12.0-15.0) g/dL Hct 41.0 (36.0-48.0) % MCV 86 (80-98) fL MCH 29 (27-31) pg MCHC 34 (32-36) % Plt Count 302 (150-400) K/uL Neut % (Auto) 69 H (36-66) % Lymph % (Auto) 18 L (24-44) % Amador % (Auto) 8 H (2-6) % Eos % (Auto) 3 (2-4) % Baso % (Auto) 1 (0-1) % D-Dimer, Quantitative (0.0-400.0) ng/mL Sodium 137 L (140-148) mmol/L Potassium 3.9 (3.6-5.2) mmol/L Chloride 104 (100-108) mmol/L Carbon Dioxide 20 L (21-32) mmol/L Anion Gap 16.9 H (5.0-14.0) mmol/L BUN 28 H (7-18) mg/dL Creatinine 0.9 (0.6-1.0) mg/dL Est Cr Clr Drug Dosing 49.29 mL/min Estimated GFR (MDRD) > 60 (>60) Glucose 148 H (74-106) mg/dL Lactic Acid (0.4-2.0) mmol/L Calcium 8.3 L (8.5-10.1) mg/dL Total Bilirubin 0.2 (0.2-1.0) mg/dL AST 12 L (15-37) U/L ALT 21 (12-78) U/L Alkaline Phosphatase 103 (46-116) U/L Troponin I < 0.017 (0.000-0.056) ng/mL C-Reactive Protein 0.68 H (0.0-0.3) mg/dL Total Protein 6.5 (6.4-8.2) g/dL Albumin 3.4 (3.4-5.0) g/dL Globulin 3.1 (2.3-3.5) g/dL Albumin/Globulin Ratio 1.1 L (1.2-2.2) Lipase 133 (73-393) U/L Urine Color (YELLOW) Urine Appearance (CLEAR) Urine pH (5.0-8.0) Ur Specific [place] (1.008-1.030) Urine Protein (NEGATIVE) mg/dL Urine Glucose (UA) (NEGATIVE) mg/dL Urine Ketones (NEGATIVE) mg/dL Urine Occult Blood (NEGATIVE) Urine Nitrite (NEGATIVE) Urine Bilirubin (NEGATIVE) Urine Urobilinogen (0.2-1.0) EU/dL Ur Leukocyte Esterase (NEGATIVE) Urine RBC (0-5) Urine WBC (0-5) Ur Epithelial Cells Urine Bacteria Urine Mucus 08/16/19 08/16/19 08/16/19 Range/Units 07:07 07:07 08:00 WBC (4.5-11.0) K/uL RBC (3.30-5.50) M/uL Hgb (12.0-15.0) g/dL Hct (36.0-48.0) % MCV (80-98) fL MCH (27-31) pg MCHC (32-36) % Plt Count (150-400) K/uL Neut % (Auto) (36-66) % Lymph % (Auto) (24-44) % Amador % (Auto) (2-6) % Eos % (Auto) (2-4) % Baso % (Auto) (0-1) % D-Dimer, Quantitative 474 H (0.0-400.0) ng/mL Sodium (140-148) mmol/L Potassium (3.6-5.2) mmol/L Chloride (100-108) mmol/L Carbon Dioxide (21-32) mmol/L Anion Gap (5.0-14.0) mmol/L BUN (7-18) mg/dL Creatinine (0.6-1.0) mg/dL Est Cr Clr Drug Dosing mL/min Estimated GFR (MDRD) (>60) Glucose (74-106) mg/dL Lactic Acid 1.7 (0.4-2.0) mmol/L Calcium (8.5-10.1) mg/dL Total Bilirubin (0.2-1.0) mg/dL AST (15-37) U/L ALT (12-78) U/L Alkaline Phosphatase (46-116) U/L Troponin I < 0.017 (0.000-0.056) ng/mL C-Reactive Protein (0.0-0.3) mg/dL Total Protein (6.4-8.2) g/dL Albumin (3.4-5.0) g/dL Globulin (2.3-3.5) g/dL Albumin/Globulin Ratio (1.2-2.2) Lipase (73-393) U/L Urine Color (YELLOW) Urine Appearance (CLEAR) Urine pH (5.0-8.0) Ur Specific [place] (1.008-1.030) Urine Protein (NEGATIVE) mg/dL Urine Glucose (UA) (NEGATIVE) mg/dL Urine Ketones (NEGATIVE) mg/dL Urine Occult Blood (NEGATIVE) Urine Nitrite (NEGATIVE) Urine Bilirubin (NEGATIVE) Urine Urobilinogen (0.2-1.0) EU/dL Ur Leukocyte Esterase (NEGATIVE) Urine RBC (0-5) Urine WBC (0-5) Ur Epithelial Cells Urine Bacteria Urine Mucus 08/16/19 Range/Units 08:28 WBC (4.5-11.0) K/uL RBC (3.30-5.50) M/uL Hgb (12.0-15.0) g/dL Hct (36.0-48.0) % MCV (80-98) fL MCH (27-31) pg MCHC (32-36) % Plt Count (150-400) K/uL Neut % (Auto) (36-66) % Lymph % (Auto) (24-44) % Amador % (Auto) (2-6) % Eos % (Auto) (2-4) % Baso % (Auto) (0-1) % D-Dimer, Quantitative (0.0-400.0) ng/mL Sodium (140-148) mmol/L Potassium (3.6-5.2) mmol/L Chloride (100-108) mmol/L Carbon Dioxide (21-32) mmol/L Anion Gap (5.0-14.0) mmol/L BUN (7-18) mg/dL Creatinine (0.6-1.0) mg/dL Est Cr Clr Drug Dosing mL/min Estimated GFR (MDRD) (>60) Glucose (74-106) mg/dL Lactic Acid (0.4-2.0) mmol/L Calcium (8.5-10.1) mg/dL Total Bilirubin (0.2-1.0) mg/dL AST (15-37) U/L ALT (12-78) U/L Alkaline Phosphatase (46-116) U/L Troponin I (0.000-0.056) ng/mL C-Reactive Protein (0.0-0.3) mg/dL Total Protein (6.4-8.2) g/dL Albumin (3.4-5.0) g/dL Globulin (2.3-3.5) g/dL Albumin/Globulin Ratio (1.2-2.2) Lipase (73-393) U/L Urine Color Yellow (YELLOW) Urine Appearance Clear (CLEAR) Urine pH 5.5 (5.0-8.0) Ur Specific [place] >= 1.030 (1.008-1.030) Urine Protein Negative (NEGATIVE) mg/dL Urine Glucose (UA) Negative (NEGATIVE) mg/dL Urine Ketones 40 H (NEGATIVE) mg/dL Urine Occult Blood Negative (NEGATIVE) Urine Nitrite Negative (NEGATIVE) Urine Bilirubin Negative (NEGATIVE) Urine Urobilinogen 0.2 (0.2-1.0) EU/dL Ur Leukocyte Esterase Negative (NEGATIVE) Urine RBC Not seen (0-5) Urine WBC 0-5 (0-5) Ur Epithelial Cells Few Urine Bacteria Not seen Urine Mucus Few Meds: Medications Discontinued Medications Generic Name Dose Route Start Last Admin Trade Name Freq PRN Reason Stop Dose Admin Lactated Ringer's 1,000 mls @ 1,000 mls/hr 08/16/19 07:06 08/16/19 07:22 Ringers, Lactated IV 08/16/19 08:05 1,000 mls/hr BOLUS ONE Administration - Re-Assessments/Exams Free Text/Narrative Re-Assessment/Exam: 08/16/19 06:40 CBC, CMP, lipase and troponin were redrawn, 2 view chest x-ray obtained. 08/16/19 06:58 White count is normal, hemoglobin is actually increased almost 2 g to 13.5. She may be volume contracted. Care was turned over to Dr. Carson. Departure - Departure Disposition: Home, Self-Care 01 Clinical Impression: Mild dehydration, Nonspecific abdominal pain - Discharge Information Instructions: Dehydration, Adult, [id number], Abdominal Pain, Adult, Easy-to- Read Referrals: Stevie Harper MD [Primary Care Provider] - Forms: ED Department Discharge Additional Instructions: Drink more fluids. Acetaminophen as needed for pain relief. Follow up with your provider. Sepsis Event Note - Evaluation Sepsis Screening Result: No Definite Risk - Focused Exam Vital Signs: Vital Signs Temp Pulse Resp BP Pulse Ox 08/16/19 06:01 36.3 C 129 H 16 139/93 H 97 Date Exam was Performed: 08/16/19 Time Exam was Performed: 06:58 <Martir Carson G - Last Filed: 08/16/19 09:37> Course - Re-Assessments/Exams Free Text/Narrative Re-Assessment/Exam: 08/16/19 09:36 Feels much better after IV fluids. Departure - Departure Time of Disposition: 09:36 Condition: Fair - Discharge Information *PRESCRIPTION DRUG MONITORING PROGRAM REVIEWED*: Not Applicable *COPY OF PRESCRIPTION DRUG MONITORING REPORT IN PATIENT PABLITO: Not Applicable Sepsis Event Note - Focused Exam Date Exam was Performed: 08/16/19 Time Exam was Performed: 09:36
[2019-08-16] MEDS ORDERED: Lactated Ringers 1,000 ML IV ONE (07:06)
--- NOTE | 2019-08-16 10:12 | CR ---
CHEST: 2 view CLINICAL HISTORY:Dyspnea COMPARISON:08/06/2019 FINDINGS: The heart size, pulmonary vascularity and hilar structures are normal. No infiltrate effusion or pneumothorax is seen. IMPRESSION: No acute cardiopulmonary process.
== END 2019-08-16 09:52 | disposition home or self-care (01) ==
LOC: JP.ED 05:35
DX: R10.31 Right lower quadrant pain (principal); E86.0 Dehydration; E78.00 Pure hypercholesterolemia, unspecified; E11.9 Type 2 diabetes mellitus without complications; I10 Essential (primary) hypertension; Z79.82 Long term (current) use of aspirin; Z79.84 Long term (current) use of oral hypoglycemic drugs; Z79.899 Other long term (current) drug therapy
CPT/HCPCS: 36415; 71046; 80053; 81001; 83605; 83690; 84484; 85025; 85379; 86140; 96360; 99284; J7120

== ENCOUNTER 2024-04-08 19:33 | Emergency (ER) | payer BC ==
[2024-04-08 20:25] LABS: EOSINOPHILS PERCENT AUTO 0.2 % (0.0-5.4); HEMATOCRIT 36.2 % (34.3-46.0); HEMOGLOBIN 12.3 g/dL (11.2-15.5); IMMATURE GRAN ABSOLUTE AUTO 0.04 K/uL (0.00-0.23); IMMATURE GRAN PERCENT AUTO 0.3 % (0.0-0.7); LYMPHOCYTES PERCENT AUTO 2.3 % (11.4-47.7); MEAN CORPUSCULAR HEMOGLOBIN 29.6 pg (31.6-35.5); MONOCYTES ABSOLUTE AUTO 0.33 K/uL (0.20-0.90); MONOCYTES PERCENT AUTO 2.6 % (3.3-12.6); NEUTROPHILS ABSOLUTE AUTO 12.11 K/uL (1.0-7.6); NEUTROPHILS PERCENT AUTO 94.6 % (40.0-78.1); PLATELET COUNT,PLT 250 K/uL (130-375); RED BLOOD CELL COUNT 4.16 M/uL (3.77-5.24); WHITE BLOOD CELL COUNT,WBC 12.8 K/uL (3.2-11.0)
[2024-04-08 20:26] LABS: EOSINOPHILS ABSOLUTE AUTO 0.02 K/uL (0.00-0.40)
[2024-04-08] MEDS: Sodium Chloride 0.9% 1,000 ML IV ONE (20:29)
[2024-04-08] MEDS: Ondansetron 4 MG/2 ML SDV IVPUSH ONE (20:30)
[2024-04-08 20:47] LABS: A/G RATIO 1.2 (1.2-2.2); ALANINE AMINOTRANSFERASE,ALT 16 U/L (12-78); ALBUMIN 4.3 g/dL (3.4-5.0); ALKALINE PHOSPHATASE 93 U/L (46-116); ANION GAP 12.5 mmol/L (5.0-14.0); ASPARTATE AMNIOTRANSFERASE,AST 21 U/L (15-37); BILIRUBIN TOTAL 0.4 mg/dL (0.2-1.0); BLOOD UREA NITROGEN,BUN 29 mg/dL (7-18); CALCIUM 8.9 mg/dL (8.5-10.1); CARBON DIOXIDE,CO2 23 mmol/L (21-32); CHLORIDE,CL 105 mmol/L (100-108); CREATININE 0.8 mg/dL (0.6-1.0); EST CRCL DRUG DOSING (CG) 51.13 mL/min; ESTIMATED GFR 79 mL/min (>60); GLUCOSE RANDOM 119 mg/dL (74-106); POTASSIUM,K 4.2 mmol/L (3.6-5.2); PROTEIN TOTAL,TP 7.8 g/dL (6.4-8.2); SODIUM,NA 140 mmol/L (140-148)
[2024-04-08 20:48] LABS: TROPONIN I HIGH SENSITIVITY < 4.0 pg/mL (<=60.3)
== END 2024-04-08 21:35 | disposition home or self-care (01) ==
LOC: JP.ED 19:33
DX: R11.2 Nausea with vomiting, unspecified (principal); I10 Essential (primary) hypertension; E78.00 Pure hypercholesterolemia, unspecified; E11.9 Type 2 diabetes mellitus without complications; Z88.5 Allergy status to narcotic agent; Z79.82 Long term (current) use of aspirin; Z79.84 Long term (current) use of oral hypoglycemic drugs; Z79.899 Other long term (current) drug therapy
CPT/HCPCS: 36415; 80053; 83690; 84484; 85025; 96361; 96374; 99284; J2405; J7030